=== PATIENT | female | born 1935 | race African-American/Black ===

== ENCOUNTER 2016-04-23 15:34 | Observation (INO) | payer MEDICARE, MEDICAID ==
[~2016-04-23] VITALS: Ht 149.9 cm; Wt 86.6 kg
[2016-04-23 15:40] VITALS: BP 176/75; PULSE 70; TEMP 98.5
[2016-04-23] MEDS ORDERED: HCTZ 25MG TAB25 MG PO (15:50)
[2016-04-23] MEDS ORDERED: PRAVACHOL80 MG PO (15:51)
[2016-04-23] MEDS ORDERED: COZAAR100 MG PO (15:51)
[2016-04-23] MEDS ORDERED: BONIVA150 MG PO (15:52)
[2016-04-23] MEDS ORDERED: ULTRAM 50MG TAB50 MG PO (15:56)
[2016-04-23] MEDS ORDERED: ASPIRIN 81M81 MG/TA2 PO (16:04)
[2016-04-23 18:37] LABS: BASO # 0.1 (0.0-0.2); BASO % 0.4 % (0.0-2.0); EOS # 0.3 (0.0-0.7); EOS % 2.6 % (0-4.0); GRAN # 6.9 (1.4-6.5); GRAN % 61.4 % (42.2-75.2); HEMATOCRIT 39.7 % (37.0-47.0); LYMPH # 3.4 (1.2-3.4); LYMPH % 29.6 % (20.0-51.0); MEAN CELL VOLUME 91 fl (80.0-100.0); MEAN CORPUSCULAR HEMOGLOBIN 30 pg (27.0-31.0); MEAN CORPUSCULAR HGB CONC 33 g/dl (33.0-37.0); MEAN PLATELET VOLUME 13.4 fl (7.4-10.4); MONO # 0.6 (0.1-0.6); MONO % 5.7 % (1.7-9.3); PLATELET COUNT 156 K/mm3 (130-400); RED BLOOD COUNT 4.37 M/mm3 (4.10-5.30); REDCELL DISTRIBUTION WIDTH-CV 13.1 % (11.5-14.5); WHITE BLOOD COUNT 11.3 K/mm3 (4.8-10.8)
[2016-04-23 18:40] LABS: INR 1.1 (0.8-3.0); PROTHROMBIN TIME 11.7 SECONDS (9.7-12.8)
[2016-04-23 18:43] LABS: PARTIAL THROMBOPLASTIN TIME 31.8 SECONDS (26.0-37.0)
[2016-04-23 18:47] LABS: ADJUSTED CALCIUM 9.7 mg/dL (8.4-10.2); ALANINE AMINOTRANSFERASE 19 U/L (9-52); ALBUMIN 3.9 gm/dL (3.5-5.0); ALKALINE PHOSPHATASE 74 U/L (50-136); ANION GAP 11 mmol/L (7-16); BILIRUBIN,TOTAL 0.9 mg/dL (0.0-1.0); BLOOD UREA NITROGEN 6 mg/dL (7-17); CALCIUM 9.6 mg/dL (8.4-10.2); CARBON DIOXIDE 31 mmol/L (22-30); CHLORIDE 101 mmol/L (98-107); CREATINE KINASE 117 U/L (30-135); CREATININE, serum 0.76 mg/dL (0.52-1.25); GLUCOSE 106 mg/dL (74-106); POTASSIUM 3.3 mmol/L (3.4-5.0); SODIUM 143 mmol/L (137-145); TOTAL PROTEIN 7.4 gm/dL (6.4-8.2)
[2016-04-23 18:58] LABS: B-TYPE NATRIURETIC PEPTIDE 886 pg/mL (0-450)
[2016-04-23 18:59] LABS: CHOLESTEROL 143 mg/dL (120-200); HDL CHOLESTEROL 50 mg/dL; LDL CHOLESTEROL 76 mg/dL; TRIGLYCERIDE 87 mg/dL
[2016-04-23 19:03] LABS: TROPONIN-I < 0.012 ng/mL (0.000-0.034)
[2016-04-23 19:30] VITALS: BP 189/66; PULSE 70; TEMP 98.5
[2016-04-23 21:46] VITALS: BP 153/67
[2016-04-23 23:45] VITALS: BP 157/56; PULSE 64; TEMP 98.7
[2016-04-24 04:07] VITALS: BP 106/53; PULSE 44; TEMP 98.4
[2016-04-24 06:13] VITALS: BP 106/53; PULSE 44
[2016-04-24 08:34] VITALS: BP 185/61; PULSE 65; TEMP 98.5
[2016-04-24 12:16] VITALS: BP 156/74; PULSE 65; TEMP 98.1
[2016-04-24 15:27] VITALS: BP 155/63; PULSE 70; TEMP 98.2
== END 2016-04-24 16:30 | disposition home or self-care (01) ==
LOC: MEDICAL 15:34
PROVIDERS: Internal Medicine Cardiovascular Disease
DX: R07.89 Other chest pain (principal); I10 Essential (primary) hypertension; E66.9 Obesity, unspecified; E87.6 Hypokalemia; I51.7 Cardiomegaly; I50.9 Heart failure, unspecified; E78.5 Hyperlipidemia, unspecified
CPT/HCPCS: 99222-AI; 99238; A9502; G0378; G0379; J2785; J7030

== ENCOUNTER 2016-05-26 19:21 | Inpatient (IN) | payer MEDICARE, MEDICAID ==
[2016-05-26] VITALS (35 sets, daily range): BP systolic 109; BP diastolic 75; PULSE 142; TEMP 98.4; O2SAT 91–99
[~2016-05-26] VITALS: Ht 147.3 cm; Wt 93.4 kg
[~2016-05-26 19:21] MED LIST: ASPIRIN 81M81 MG/TA2 PO; BONIVA150 MG PO; COZAAR100 MG PO; HCTZ 25MG TAB25 MG PO; PRAVACHOL80 MG PO; ULTRAM 50MG TAB50 MG PO
[2016-05-26 19:58] LABS: HEMATOCRIT 40.8 % (37.0-47.0); HEMOGLOBIN 13.5 g/dl (12.5-16.0); MEAN CELL VOLUME 90 fl (80.0-100.0); MEAN CORPUSCULAR HEMOGLOBIN 30 pg (27.0-31.0); MEAN CORPUSCULAR HGB CONC 33 g/dl (33.0-37.0); MEAN PLATELET VOLUME 13.4 fl (7.4-10.4); PLATELET COUNT 160 K/mm3 (130-400); RED BLOOD COUNT 4.52 M/mm3 (4.10-5.30); REDCELL DISTRIBUTION WIDTH-CV 13.2 % (11.5-14.5); WHITE BLOOD COUNT 17.7 K/mm3 (4.8-10.8)
[2016-05-26 20:02] LABS: ADD PATHOLOGY DIFF REVIEW NO
[2016-05-26 20:09] LABS: ADJUSTED CALCIUM 9.4 mg/dL (8.4-10.2); BILIRUBIN,TOTAL 1.1 mg/dL (0.0-1.0); CALCIUM 9.4 mg/dL (8.4-10.2); CREATININE, serum 1.04 mg/dL (0.52-1.25); POTASSIUM 3.1 mmol/L (3.4-5.0); TOTAL PROTEIN 7.3 gm/dL (6.4-8.2)
[2016-05-26 20:20] LABS: TROPONIN-I 0.013 ng/mL (0.000-0.034)
[2016-05-26 20:36] LABS: BAND 25 % (0-10); NEUTROPHILS 47 % (42.0-75.2); TOTAL CELLS COUNTED 100
[2016-05-27] VITALS (586 sets, daily range): BP systolic 90–131; BP diastolic 44–73; PULSE 53–137; TEMP 97.4–98.4; O2SAT 66–100
[2016-05-27] MEDS ORDERED: HYZAAR 25 MG-101 TAB PO (00:11)
[2016-05-27 02:11] LABS: PH 5 (5-8); URINE APPEARANCE Hazy; URINE BACTERIA None Seen /hpf; URINE BILIRUBIN Negative (NEGATIVE); URINE BLOOD Negative (NEGATIVE); URINE COLOR Yellow; URINE GLUCOSE Negative (NEGATIVE); URINE KETONE Negative (NEGATIVE); URINE RBC 0-2 /hpf; URINE UROBILINOGEN Negative (NEGATIVE)
[2016-05-27 06:33] LABS: INR 1.1 (0.8-3.0); PROTHROMBIN TIME 11.9 SECONDS (9.7-12.8)
[2016-05-27 06:41] LABS: CREATININE, serum 0.9 mg/dL (0.52-1.25); POTASSIUM 3.1 mmol/L (3.4-5.0)
[2016-05-27 19:43] LABS: BASO # 0.1 (0.0-0.2); BASO % 0.3 % (0.0-2.0); EOS # 0.1 (0.0-0.7); EOS % 0.4 % (0-4.0); GRAN # 14.9 (1.4-6.5); GRAN % 80.8 % (42.2-75.2); HEMATOCRIT 39.1 % (37.0-47.0); HEMOGLOBIN 12.3 g/dl (12.5-16.0); LYMPH # 2.3 (1.2-3.4); LYMPH % 12.5 % (20.0-51.0); MEAN CELL VOLUME 94 fl (80.0-100.0); MEAN CORPUSCULAR HEMOGLOBIN 29 pg (27.0-31.0); MEAN CORPUSCULAR HGB CONC 32 g/dl (33.0-37.0); MONO % 5.5 % (1.7-9.3); PLATELET COUNT 135 K/mm3 (130-400); RED BLOOD COUNT 4.18 M/mm3 (4.10-5.30); REDCELL DISTRIBUTION WIDTH-CV 13.5 % (11.5-14.5); WHITE BLOOD COUNT 18.4 K/mm3 (4.8-10.8)
[2016-05-28 03:34] VITALS: BP 148/64; PULSE 75; TEMP 97.7
[2016-05-28 05:50] VITALS: BP 150/80; PULSE 149
[2016-05-28 07:39] VITALS: BP 141/78; PULSE 71; TEMP 97.9
[2016-05-28 12:27] VITALS: BP 126/74; PULSE 131; TEMP 98.1
[2016-05-28 18:42] VITALS: BP 123/85; PULSE 88; TEMP 98.8
[2016-05-28 20:07] VITALS: BP 141/70; PULSE 130; TEMP 98.2
[2016-05-29] VITALS (391 sets, daily range): BP systolic 94–138; BP diastolic 50–77; PULSE 55–125; TEMP 97.4–98; O2SAT 41–100
[2016-05-29 12:22] LABS: ADJUSTED CALCIUM 8.2 mg/dL (8.4-10.2); ALBUMIN 2.6 gm/dL (3.5-5.0); BILIRUBIN,TOTAL 0.8 mg/dL (0.0-1.0); CALCIUM 7.1 mg/dL (8.4-10.2); CREATININE, serum 0.75 mg/dL (0.52-1.25); POTASSIUM 4.1 mmol/L (3.4-5.0); TOTAL PROTEIN 5.8 gm/dL (6.4-8.2)
[2016-05-29 12:34] LABS: BASO % 0.3 % (0.0-2.0); EOS # 0.3 (0.0-0.7); EOS % 2.4 % (0-4.0); GRAN # 8.9 (1.4-6.5); GRAN % 77.6 % (42.2-75.2); HEMATOCRIT 32.8 % (37.0-47.0); HEMOGLOBIN 10.5 g/dl (12.5-16.0); LYMPH # 1.6 (1.2-3.4); LYMPH % 14.2 % (20.0-51.0); MEAN CELL VOLUME 94 fl (80.0-100.0); MEAN CORPUSCULAR HEMOGLOBIN 30 pg (27.0-31.0); MEAN CORPUSCULAR HGB CONC 32 g/dl (33.0-37.0); MEAN PLATELET VOLUME 14.4 fl (7.4-10.4); MONO # 0.6 (0.1-0.6); MONO % 5.2 % (1.7-9.3); PLATELET COUNT 135 K/mm3 (130-400); REDCELL DISTRIBUTION WIDTH-CV 13.6 % (11.5-14.5); WHITE BLOOD COUNT 11.5 K/mm3 (4.8-10.8)
[2016-05-29 16:16] LABS: ARTERIAL BLD GAS O2 SATURATION 99.1 % (92-100); ARTERIAL BLOOD GAS BASE EXCESS -8.2 (-2-2); ARTERIAL BLOOD GAS HCO3 17.8 meq/L (22-26); ARTERIAL BLOOD GAS pH 7.29 (7.35-7.45); ATS? YES; OXYHEMOGLOBIN 98.5 %
[2016-05-29 16:53] LABS: HEMATOCRIT 35.8 % (37.0-47.0); MEAN CELL VOLUME 97 fl (80.0-100.0); MEAN CORPUSCULAR HEMOGLOBIN 30 pg (27.0-31.0); MEAN CORPUSCULAR HGB CONC 31 g/dl (33.0-37.0); MEAN PLATELET VOLUME 13.8 fl (7.4-10.4); PLATELET COUNT 167 K/mm3 (130-400); RED BLOOD COUNT 3.69 M/mm3 (4.10-5.30); REDCELL DISTRIBUTION WIDTH-CV 13.5 % (11.5-14.5); WHITE BLOOD COUNT 16.1 K/mm3 (4.8-10.8)
[2016-05-29 17:08] LABS: CALCIUM 6.8 mg/dL (8.4-10.2); CREATININE, serum 0.93 mg/dL (0.52-1.25); POTASSIUM 4.2 mmol/L (3.4-5.0)
[2016-05-29 17:41] LABS: TROPONIN-I 0.072 ng/mL (0.000-0.034)
[2016-05-30] VITALS (1220 sets, daily range): BP systolic 108–195; BP diastolic 59–95; PULSE 60–76; TEMP 97.9–98.8; O2SAT 41–100
[2016-05-30 03:48] LABS: CALCIUM 7.3 mg/dL (8.4-10.2); CREATININE, serum 0.93 mg/dL (0.52-1.25); MAGNESIUM 2.1 mg/dL (1.6-2.3); POTASSIUM 4.5 mmol/L (3.4-5.0)
[2016-05-31] VITALS (885 sets, daily range): BP systolic 100–176; BP diastolic 48–77; PULSE 53–68; TEMP 98.1–98.9; O2SAT 69–100
[2016-05-31 07:48] LABS: CALCIUM 8.4 mg/dL (8.4-10.2); CREATININE, serum 0.77 mg/dL (0.52-1.25); MAGNESIUM 2.3 mg/dL (1.6-2.3); POTASSIUM 4.2 mmol/L (3.4-5.0)
[2016-06-01] VITALS (1035 sets, daily range): BP systolic 113–155; BP diastolic 56–82; PULSE 55–79; TEMP 98.1–98.7; O2SAT 87–100
[2016-06-01 06:28] LABS: CALCIUM 8.5 mg/dL (8.4-10.2); CREATININE, serum 0.87 mg/dL (0.52-1.25); MAGNESIUM 1.9 mg/dL (1.6-2.3)
[2016-06-01 11:33] LABS: FASTING URINE GLUCOSE NEGATIVE
[2016-06-01 12:37] LABS: 2 HR URINE GLUCOSE NEGATIVE
[2016-06-02 05:14] VITALS: BP 142/53; PULSE 77; TEMP 98.4
[2016-06-02 09:07] LABS: CALCIUM 8.7 mg/dL (8.4-10.2); CREATININE, serum 0.99 mg/dL (0.52-1.25); MAGNESIUM 1.9 mg/dL (1.6-2.3)
[2016-06-02 09:21] LABS: POTASSIUM 3.8 mmol/L (3.4-5.0)
[2016-06-02 10:40] VITALS: BP 142/65; PULSE 60; TEMP 98.3
[2016-06-02 12:47] LABS: BASO # 0.1 (0.0-0.2); BASO % 0.3 % (0.0-2.0); EOS # 0.8 (0.0-0.7); EOS % 5.3 % (0-4.0); GRAN # 10.6 (1.4-6.5); GRAN % 69.2 % (42.2-75.2); LYMPH # 2.6 (1.2-3.4); LYMPH % 16.7 % (20.0-51.0); MEAN CELL VOLUME 92 fl (80.0-100.0); MEAN CORPUSCULAR HGB CONC 32 g/dl (33.0-37.0); MEAN PLATELET VOLUME 12.4 fl (7.4-10.4); MONO # 1.2 (0.1-0.6); MONO % 7.8 % (1.7-9.3); PLATELET COUNT 226 K/mm3 (130-400); RED BLOOD COUNT 3.61 M/mm3 (4.10-5.30); REDCELL DISTRIBUTION WIDTH-CV 13.9 % (11.5-14.5); WHITE BLOOD COUNT 15.3 K/mm3 (4.8-10.8)
[2016-06-02 12:48] LABS: HEMATOCRIT 33.2 % (37.0-47.0); HEMOGLOBIN 10.7 g/dl (12.5-16.0); MEAN CORPUSCULAR HEMOGLOBIN 30 pg (27.0-31.0)
[2016-06-02 13:53] VITALS: BP 161/75; PULSE 63; TEMP 98.3
[2016-06-02 16:39] VITALS: BP 181/74; PULSE 65; TEMP 99.2
[2016-06-02 17:11] VITALS: BP 168/75
[2016-06-02 22:02] VITALS: BP 153/67; PULSE 61; TEMP 98.2
[2016-06-03 04:48] VITALS: BP 146/66; PULSE 59; TEMP 98.4
[2016-06-03 07:45] LABS: CALCIUM 9.3 mg/dL (8.4-10.2); CREATININE, serum 0.95 mg/dL (0.52-1.25); MAGNESIUM 1.9 mg/dL (1.6-2.3); POTASSIUM 4.5 mmol/L (3.4-5.0)
[2016-06-03 08:21] LABS: ALBUMIN 3.5 gm/dL (3.5-5.0); BILIRUBIN,TOTAL 1.2 mg/dL (0.0-1.0); TOTAL PROTEIN 6.8 gm/dL (6.4-8.2)
[2016-06-03 08:30] LABS: BILIRUBIN,DIRECT 0.9 mg/dL (0.0-0.4)
[2016-06-03 09:18] VITALS: BP 159/67; PULSE 66; TEMP 98.2
[2016-06-03 13:15] VITALS: BP 173/81; PULSE 59; TEMP 97.8
[2016-06-03 17:33] VITALS: BP 162/83; PULSE 61; TEMP 98.2
[2016-06-03 21:52] VITALS: BP 169/79; PULSE 59; TEMP 97.5
[2016-06-04 02:55] VITALS: BP 148/69; PULSE 59; TEMP 97.4
[2016-06-04 05:07] VITALS: BP 134/60; PULSE 51; TEMP 97.5
[2016-06-04 09:30] VITALS: BP 154/58; PULSE 50; TEMP 98.3
[2016-06-04 13:40] LABS: PH 7 (5-8); SQUAMOUS EPITHELIAL 0-2 /hpf; URINE APPEARANCE Clear; URINE BACTERIA None Seen /hpf; URINE BILIRUBIN Negative (NEGATIVE); URINE BLOOD 1+ (NEGATIVE); URINE COLOR Yellow; URINE GLUCOSE Negative (NEGATIVE); URINE KETONE Negative (NEGATIVE); URINE UROBILINOGEN Negative (NEGATIVE); URINE WBC 0-2 /hpf
[2016-06-04 13:43] VITALS: BP 160/65; PULSE 52; TEMP 98.2
[2016-06-04 17:51] VITALS: BP 192/63; PULSE 57; TEMP 98.1
[2016-06-04 21:50] VITALS: BP 166/62; PULSE 59; TEMP 98.1
[2016-06-05 00:30] VITALS: BP 141/60; PULSE 54; TEMP 98
[2016-06-05 04:58] VITALS: BP 147/61; PULSE 58; TEMP 97.4
[2016-06-05 07:48] LABS: ADJUSTED CALCIUM 10.4 mg/dL (8.4-10.2); ALBUMIN 2.8 gm/dL (3.5-5.0); BILIRUBIN,TOTAL 0.7 mg/dL (0.0-1.0); CALCIUM 9.4 mg/dL (8.4-10.2); CREATININE, serum 0.95 mg/dL (0.52-1.25); POTASSIUM 4.2 mmol/L (3.4-5.0); TOTAL PROTEIN 5.8 gm/dL (6.4-8.2)
[2016-06-05] MEDS ORDERED: QUESTRAN LI4 GM/5 GM PO (09:51)
[2016-06-05] MEDS ORDERED: TAMBOCOR 1100 MG/TAB PO (09:52)
[2016-06-05] MEDS ORDERED: HCTZ 25MG TAB25 MG PO (09:55)
[2016-06-05] MEDS ORDERED: PROBIOTIC ACID1 EAC3 PO (09:56)
[2016-06-05 10:21] VITALS: BP 163/74; PULSE 51; TEMP 98.2
[2016-06-05] MEDS ORDERED: ZESTRIL 20MG TA20 MG PO (11:53)
[2016-06-05] MEDS ORDERED: KLOR-CON 1010 MEQ PO (11:54)
[2016-06-05] MEDS ORDERED: LOPRESSOR 225 MG/TAB PO (11:56)
[2016-06-05 14:25] VITALS: BP 123/44; PULSE 59; TEMP 98.4
== END 2016-06-05 17:05 | disposition home or self-care (01) | DRG 417 ==
LOC: COL.ER 19:21 → ICU 21:20 → MEDICAL 21:20 → ICU 22:11 → MEDICAL 05-27 17:09 → IMCU 05-29 16:35 → SURG 06-01 19:58
PROVIDERS: Emergency Medicine; Family Medicine; Internal Medicine; Internal Medicine Cardiovascular Disease; Nurse Practitioner Family; Surgery
PROC: BF0C1ZZ Plain Radiography of Hepatobiliary System, All using Low Osmolar Contrast (ICD-10-PCS; 2016-05-27)
PROC: 0FB14ZX Excision of Right Lobe Liver, Percutaneous Endoscopic Approach, Diagnostic (ICD-10-PCS; 2016-05-27)
PROC: 0F9440Z Drainage of Gallbladder with Drainage Device, Percutaneous Endoscopic Approach (ICD-10-PCS; 2016-05-27)
PROC: 0FT44ZZ Resection of Gallbladder, Percutaneous Endoscopic Approach (ICD-10-PCS; principal; 2016-05-27 12:30)
PROC: 0JH602Z Insertion of Monitoring Device into Chest Subcutaneous Tissue and Fascia, Open Approach (ICD-10-PCS; 2016-05-29)
PROC: 5A2204Z Restoration of Cardiac Rhythm, Single (ICD-10-PCS; 2016-05-29)
DX: K80.12 Calculus of gallbladder with acute and chronic cholecystitis without obstruction (principal); J96.01 Acute respiratory failure with hypoxia; I50.33 Acute on chronic diastolic (congestive) heart failure; I47.1 Supraventricular tachycardia; K90.9 Intestinal malabsorption, unspecified; D13.4 Benign neoplasm of liver; I49.5 Sick sinus syndrome; E87.6 Hypokalemia; E74.39 Other disorders of intestinal carbohydrate absorption; I44.1 Atrioventricular block, second degree; E87.70 Fluid overload, unspecified; I11.0 Hypertensive heart disease with heart failure
CPT/HCPCS: 99223-AI; 99232-AI; 99233-AI; 99239; A4315; A9284; J0153; J0360; J1170; J1650; J1940; J2405; J2543; J2550; J2704; J3010; J3480; J7030; J7050; Q9967

== ENCOUNTER 2016-06-10 18:40 | Observation (INO) | payer MEDICARE, MEDICAID ==
[~2016-06-10] VITALS: Ht 147.3 cm; Wt 87.9 kg
[~2016-06-10 18:40] MED LIST changes: +HYZAAR 25 MG-101 TAB PO; +KLOR-CON 1010 MEQ PO; +LOPRESSOR 225 MG/TAB PO; +PROBIOTIC ACID1 EAC3 PO; +QUESTRAN LI4 GM/5 GM PO; +TAMBOCOR 1100 MG/TAB PO; +ZESTRIL 20MG TA20 MG PO
[2016-06-10 19:37] LABS: BASO # 0.1 (0.0-0.2); BASO % 0.3 % (0.0-2.0); EOS # 0.6 (0.0-0.7); EOS % 3.7 % (0-4.0); GRAN # 12.2 (1.4-6.5); GRAN % 72.1 % (42.2-75.2); HEMATOCRIT 37.3 % (37.0-47.0); LYMPH # 2.6 (1.2-3.4); LYMPH % 15.4 % (20.0-51.0); MEAN CELL VOLUME 92 fl (80.0-100.0); MEAN CORPUSCULAR HEMOGLOBIN 30 pg (27.0-31.0); MEAN CORPUSCULAR HGB CONC 32 g/dl (33.0-37.0); MEAN PLATELET VOLUME 12.4 fl (7.4-10.4); MONO # 1.4 (0.1-0.6); PLATELET COUNT 274 K/mm3 (130-400); RED BLOOD COUNT 4.05 M/mm3 (4.10-5.30); REDCELL DISTRIBUTION WIDTH-CV 14.6 % (11.5-14.5); WHITE BLOOD COUNT 16.9 K/mm3 (4.8-10.8)
[2016-06-10 19:52] LABS: ADJUSTED CALCIUM 9.5 mg/dL (8.4-10.2); ALANINE AMINOTRANSFERASE 70 U/L (9-52); ALBUMIN 3.7 gm/dL (3.5-5.0); ALKALINE PHOSPHATASE 145 U/L (50-136); ANION GAP 15 mmol/L (7-16); BILIRUBIN,TOTAL 1.1 mg/dL (0.0-1.0); BLOOD UREA NITROGEN 6 mg/dL (7-17); CALCIUM 9.3 mg/dL (8.4-10.2); CARBON DIOXIDE 27 mmol/L (22-30); CHLORIDE 98 mmol/L (98-107); CREATININE, serum 0.77 mg/dL (0.52-1.25); GLUCOSE 102 mg/dL (74-106); LIPASE 143 U/L (23-300); SODIUM 141 mmol/L (137-145); TOTAL PROTEIN 7.3 gm/dL (6.4-8.2)
[2016-06-10 20:01] LABS: TROPONIN-I < 0.012 ng/mL (0.000-0.034)
[2016-06-10 20:03] LABS: PH 6 (5-8); SQUAMOUS EPITHELIAL None Seen /hpf; URINE APPEARANCE Clear; URINE BACTERIA None Seen /hpf; URINE BILIRUBIN Negative (NEGATIVE); URINE BLOOD 1+ (NEGATIVE); URINE COLOR Straw; URINE GLUCOSE Negative (NEGATIVE); URINE KETONE Trace (NEGATIVE); URINE RBC 0-2 /hpf; URINE UROBILINOGEN Negative (NEGATIVE); URINE WBC 0-2 /hpf
[2016-06-10 20:17] LABS: C-REACTIVE PROTEIN 17.2 mg/dL (0.0-0.9)
[2016-06-10 21:48] LABS: B-TYPE NATRIURETIC PEPTIDE 2490 pg/mL (0-450)
[2016-06-10 22:19] VITALS: BP 154/68; PULSE 91; TEMP 97.9
[2016-06-11 04:24] VITALS: BP 127/47; PULSE 67; TEMP 97.2
[2016-06-11 07:41] LABS: BASO # 0.1 (0.0-0.2); BASO % 0.4 % (0.0-2.0); EOS # 0.7 (0.0-0.7); EOS % 5.7 % (0-4.0); GRAN # 8.4 (1.4-6.5); GRAN % 67.3 % (42.2-75.2); LYMPH # 2.4 (1.2-3.4); LYMPH % 18.8 % (20.0-51.0); MEAN CELL VOLUME 94 fl (80.0-100.0); MEAN CORPUSCULAR HGB CONC 31 g/dl (33.0-37.0); MEAN PLATELET VOLUME 12.8 fl (7.4-10.4); MONO # 0.9 (0.1-0.6); MONO % 7.4 % (1.7-9.3); PLATELET COUNT 242 K/mm3 (130-400); RED BLOOD COUNT 3.49 M/mm3 (4.10-5.30); REDCELL DISTRIBUTION WIDTH-CV 14.9 % (11.5-14.5); WHITE BLOOD COUNT 12.5 K/mm3 (4.8-10.8)
[2016-06-11 07:49] LABS: HEMATOCRIT 32.9 % (37.0-47.0); HEMOGLOBIN 10.3 g/dl (12.5-16.0); MEAN CORPUSCULAR HEMOGLOBIN 30 pg (27.0-31.0)
[2016-06-11 09:02] LABS: ADJUSTED CALCIUM 9.3 mg/dL (8.4-10.2); ALBUMIN 2.8 gm/dL (3.5-5.0); BILIRUBIN,TOTAL 0.9 mg/dL (0.0-1.0); CALCIUM 8.3 mg/dL (8.4-10.2); CREATININE, serum 0.76 mg/dL (0.52-1.25); POTASSIUM 3.6 mmol/L (3.4-5.0); TOTAL PROTEIN 5.8 gm/dL (6.4-8.2)
[2016-06-11 11:24] VITALS: BP 114/50; PULSE 59; TEMP 97.4
[2016-06-11 14:00] VITALS: BP 123/43; PULSE 64; TEMP 97
[2016-06-11 17:40] VITALS: BP 171/56; PULSE 70; TEMP 97.6
[2016-06-11 19:04] VITALS: BP 152/60
[2016-06-11 21:44] VITALS: BP 147/56; PULSE 70; TEMP 97.8
[2016-06-12 01:21] VITALS: BP 125/50; PULSE 68; TEMP 98.2
[2016-06-12 05:00] VITALS: BP 111/41; PULSE 66; TEMP 97.1
[2016-06-12 06:53] LABS: BASO % 0.4 % (0.0-2.0); EOS # 0.7 (0.0-0.7); EOS % 6.6 % (0-4.0); GRAN # 7.1 (1.4-6.5); GRAN % 69.3 % (42.2-75.2); LYMPH # 1.7 (1.2-3.4); LYMPH % 16.8 % (20.0-51.0); MEAN CELL VOLUME 95 fl (80.0-100.0); MEAN CORPUSCULAR HGB CONC 32 g/dl (33.0-37.0); MEAN PLATELET VOLUME 12.8 fl (7.4-10.4); MONO # 0.7 (0.1-0.6); MONO % 6.5 % (1.7-9.3); PLATELET COUNT 257 K/mm3 (130-400); RED BLOOD COUNT 3.39 M/mm3 (4.10-5.30); REDCELL DISTRIBUTION WIDTH-CV 14.6 % (11.5-14.5); WHITE BLOOD COUNT 10.3 K/mm3 (4.8-10.8)
[2016-06-12 07:02] LABS: HEMATOCRIT 32.1 % (37.0-47.0); HEMOGLOBIN 10.1 g/dl (12.5-16.0); MEAN CORPUSCULAR HEMOGLOBIN 30 pg (27.0-31.0)
[2016-06-12 09:49] VITALS: BP 124/52; PULSE 62; TEMP 98.1
[2016-06-12 14:25] VITALS: BP 134/52; PULSE 63; TEMP 98
== END 2016-06-12 17:56 | disposition home or self-care (01) ==
LOC: COL.ER 18:40 → SURG 21:33
PROVIDERS: Emergency Medicine; Family Medicine; Nurse Practitioner Family
DX: R10.12 Left upper quadrant pain (principal); M54.9 Dorsalgia, unspecified; I47.1 Supraventricular tachycardia; I10 Essential (primary) hypertension; E78.5 Hyperlipidemia, unspecified; Z95.818 Presence of other cardiac implants and grafts
CPT/HCPCS: G0378; G8978-GP; G8979-GP; J2270; J2405; J2543; J7030; J7050; Q9967

== ENCOUNTER 2016-07-30 21:14 | Inpatient (IN) | payer MEDICARE, MEDICAID ==
[~2016-07-30] VITALS: Ht 147.3 cm; Wt 78.0 kg
[2016-07-30 21:43] LABS: BASO # 0.1 (0.0-0.2); BASO % 0.6 % (0.0-2.0); EOS # 0.3 (0.0-0.7); EOS % 2.7 % (0-4.0); GRAN # 5.9 (1.4-6.5); GRAN % 48.5 % (42.2-75.2); HEMATOCRIT 41.2 % (37.0-47.0); HEMOGLOBIN 13.7 g/dl (12.5-16.0); LYMPH # 4.8 (1.2-3.4); LYMPH % 39.1 % (20.0-51.0); MEAN CELL VOLUME 88 fl (80.0-100.0); MEAN CORPUSCULAR HEMOGLOBIN 29 pg (27.0-31.0); MEAN CORPUSCULAR HGB CONC 33 g/dl (33.0-37.0); MEAN PLATELET VOLUME 12.7 fl (7.4-10.4); MONO # 1.1 (0.1-0.6); MONO % 8.9 % (1.7-9.3); PLATELET COUNT 205 K/mm3 (130-400); REDCELL DISTRIBUTION WIDTH-CV 14.9 % (11.5-14.5); WHITE BLOOD COUNT 12.2 K/mm3 (4.8-10.8)
[2016-07-30 21:53] LABS: INR 1.1 (0.8-3.0)
[2016-07-30 21:55] LABS: ALBUMIN 3.9 gm/dL (3.5-5.0); CALCIUM 9.9 mg/dL (8.4-10.2); CREATININE, serum 1.81 mg/dL (0.52-1.25); TOTAL PROTEIN 7.4 gm/dL (6.4-8.2)
[2016-07-30 21:57] LABS: POTASSIUM 2.6 mmol/L (3.4-5.0)
[2016-07-30 22:05] LABS: TROPONIN-I 0.028 ng/mL (0.000-0.034)
[2016-07-31] VITALS (18 sets, daily range): BP systolic 93–147; BP diastolic 42–91; PULSE 59–120; TEMP 97.8–98.5
[2016-07-31] MEDS ORDERED: PROBIOTIC ACID1 EAC3 PO (01:14)
[2016-07-31 01:17] LABS: MAGNESIUM 2.2 mg/dL (1.6-2.3); POTASSIUM 3.1 mmol/L (3.4-5.0)
[2016-07-31 07:04] LABS: BASO % 0.4 % (0.0-2.0); EOS # 0.2 (0.0-0.7); EOS % 2.7 % (0-4.0); GRAN % 45.2 % (42.2-75.2); HEMATOCRIT 37.4 % (37.0-47.0); LYMPH # 3.9 (1.2-3.4); LYMPH % 44.1 % (20.0-51.0); MEAN CELL VOLUME 90 fl (80.0-100.0); MEAN CORPUSCULAR HEMOGLOBIN 29 pg (27.0-31.0); MEAN CORPUSCULAR HGB CONC 32 g/dl (33.0-37.0); MEAN PLATELET VOLUME 13.5 fl (7.4-10.4); MONO # 0.7 (0.1-0.6); MONO % 7.4 % (1.7-9.3); PLATELET COUNT 177 K/mm3 (130-400); RED BLOOD COUNT 4.16 M/mm3 (4.10-5.30); WHITE BLOOD COUNT 8.9 K/mm3 (4.8-10.8)
[2016-07-31 07:05] LABS: HEMOGLOBIN 11.9 g/dl (12.5-16.0)
[2016-07-31 07:16] LABS: ADJUSTED CALCIUM 9.5 mg/dL (8.4-10.2); BILIRUBIN,TOTAL 0.7 mg/dL (0.0-1.0); CALCIUM 8.7 mg/dL (8.4-10.2); CREATININE, serum 1.78 mg/dL (0.52-1.25); POTASSIUM 3.1 mmol/L (3.4-5.0); TOTAL PROTEIN 6.1 gm/dL (6.4-8.2)
[2016-07-31 07:20] LABS: HYALINE CAST >12 /lpf; PH 5 (5-8); URINE APPEARANCE Hazy; URINE BACTERIA Rare /hpf; URINE BILIRUBIN Negative (NEGATIVE); URINE BLOOD Negative (NEGATIVE); URINE COLOR Yellow; URINE GLUCOSE Negative (NEGATIVE); URINE KETONE Negative (NEGATIVE); URINE RBC 0-2 /hpf; URINE UROBILINOGEN Negative (NEGATIVE)
[2016-08-01] VITALS (8 sets, daily range): BP systolic 134–158; BP diastolic 52–92; PULSE 61–69; TEMP 97.4–98.5
[2016-08-01 07:53] LABS: CALCIUM 8.6 mg/dL (8.4-10.2); CREATININE, serum 1.13 mg/dL (0.52-1.25)
[2016-08-02 00:05] VITALS: BP 142/61; PULSE 65; TEMP 97.6
[2016-08-02 04:18] VITALS: BP 146/59; PULSE 62; TEMP 97.7
[2016-08-02 07:48] VITALS: BP 158/58; PULSE 69
[2016-08-02 08:22] LABS: HEMATOCRIT 37.3 % (37.0-47.0); MEAN CELL VOLUME 93 fl (80.0-100.0); MEAN CORPUSCULAR HEMOGLOBIN 29 pg (27.0-31.0); MEAN CORPUSCULAR HGB CONC 31 g/dl (33.0-37.0); MEAN PLATELET VOLUME 14.7 fl (7.4-10.4); PLATELET COUNT 125 K/mm3 (130-400); RED BLOOD COUNT 4.03 M/mm3 (4.10-5.30); REDCELL DISTRIBUTION WIDTH-CV 15.6 % (11.5-14.5); WHITE BLOOD COUNT 7.1 K/mm3 (4.8-10.8)
[2016-08-02 08:27] LABS: HEMOGLOBIN 11.7 g/dl (12.5-16.0)
[2016-08-02 08:35] LABS: CREATININE, serum 0.88 mg/dL (0.52-1.25); POTASSIUM 4.3 mmol/L (3.4-5.0)
[2016-08-02 11:19] VITALS: BP 190/70; PULSE 64; TEMP 97.5
[2016-08-02] MEDS ORDERED: CEPHALEXIN500 M1 PO (11:25)
[2016-08-02] MEDS ORDERED: TOPROL XL 50MG50 MG PO (11:26)
[2016-08-02] MEDS ORDERED: TYLENOL 325MG325 MG PO (11:26)
== END 2016-08-02 16:15 | disposition home or self-care (01) | DRG 243 ==
LOC: COL.ER 21:14 → MEDICAL 07-31 00:47
PROVIDERS: Emergency Medicine; Internal Medicine; Internal Medicine Cardiovascular Disease; Nurse Practitioner Family
PROC: 0JH606Z Insertion of Pacemaker, Dual Chamber into Chest Subcutaneous Tissue and Fascia, Open Approach (ICD-10-PCS; principal; 2016-07-31)
PROC: 02HK3JZ Insertion of Pacemaker Lead into Right Ventricle, Percutaneous Approach (ICD-10-PCS; 2016-07-31)
PROC: 02H63JZ Insertion of Pacemaker Lead into Right Atrium, Percutaneous Approach (ICD-10-PCS; 2016-07-31)
PROC: B2111ZZ Fluoroscopy of Multiple Coronary Arteries using Low Osmolar Contrast (ICD-10-PCS; 2016-07-31)
PROC: 0JPT02Z Removal of Monitoring Device from Trunk Subcutaneous Tissue and Fascia, Open Approach (ICD-10-PCS; 2016-07-31)
DX: I44.1 Atrioventricular block, second degree (principal); I20.0 Unstable angina; N17.9 Acute kidney failure, unspecified; I49.5 Sick sinus syndrome; I10 Essential (primary) hypertension; E87.6 Hypokalemia
CPT/HCPCS: 99223-AI; 99232-AI; 99239; A9270-GY; C1760; C1785; C1894; C1898; J0153; J0690; J1160; J1644; J2250; J2765; J3010; J3475; J7030

== ENCOUNTER 2016-10-27 07:45 | Inpatient (IN) | payer MEDICARE, MEDICAID ==
[~2016-10-27] VITALS: Ht 147.3 cm; Wt 70.3 kg
[~2016-10-27 07:45] MED LIST changes: +CEPHALEXIN500 M1 PO; +TOPROL XL 50MG50 MG PO; +TYLENOL 325MG325 MG PO
[2016-10-27 07:57] VITALS: BP 188/110; PULSE 77; TEMP 97.7
[2016-10-27] MEDS ORDERED: NATURAL POTASS595 MG PO (08:11)
[2016-10-27 10:16] LABS: HEMATOCRIT 41.3 % (37.0-47.0); HEMOGLOBIN 13.3 g/dl (12.5-16.0); MEAN CELL VOLUME 92 fl (80.0-100.0); MEAN CORPUSCULAR HEMOGLOBIN 30 pg (27.0-31.0); MEAN CORPUSCULAR HGB CONC 32 g/dl (33.0-37.0); MEAN PLATELET VOLUME 14.3 fl (7.4-10.4); PLATELET COUNT 126 K/mm3 (130-400); RED BLOOD COUNT 4.49 M/mm3 (4.10-5.30); REDCELL DISTRIBUTION WIDTH-CV 14.6 % (11.5-14.5)
[2016-10-27 10:19] LABS: PROTHROMBIN TIME 11.1 SECONDS (9.7-12.8)
[2016-10-27 11:49] LABS: ADJUSTED CALCIUM 9.7 mg/dL (8.4-10.2); ALBUMIN 3.9 gm/dL (3.5-5.0); BILIRUBIN,TOTAL 0.9 mg/dL (0.0-1.0); CALCIUM 9.6 mg/dL (8.4-10.2); CREATININE, serum 0.85 mg/dL (0.52-1.25); POTASSIUM 3.6 mmol/L (3.4-5.0); TOTAL PROTEIN 7.2 gm/dL (6.4-8.2)
[2016-10-27 11:53] VITALS: BP 218/105; PULSE 111; TEMP 98
[2016-10-27 14:16] VITALS: BP 175/76
[2016-10-27 15:48] VITALS: BP 169/73; PULSE 59; TEMP 98.1
[2016-10-27 19:51] VITALS: BP 182/81; PULSE 66; TEMP 97.9
[2016-10-27 23:55] VITALS: BP 138/62; PULSE 59; TEMP 97.9
[2016-10-28 04:09] VITALS: BP 134/60; PULSE 63; TEMP 98.2
[2016-10-28 07:49] VITALS: BP 157/70; PULSE 61; TEMP 98
[2016-10-28 09:52] LABS: CALCIUM 9.5 mg/dL (8.4-10.2); CREATININE, serum 0.85 mg/dL (0.52-1.25); POTASSIUM 3.5 mmol/L (3.4-5.0)
[2016-10-28 11:57] VITALS: BP 162/71; PULSE 61; TEMP 98
[2016-10-28 16:49] VITALS: BP 158/67; PULSE 63; TEMP 97
[2016-10-28 20:08] VITALS: BP 147/69; PULSE 69; TEMP 98.7
[2016-10-29 00:01] VITALS: BP 139/69; PULSE 69; TEMP 98.1
[2016-10-29 03:43] VITALS: BP 166/73; PULSE 60; TEMP 97.7
[2016-10-29 08:24] VITALS: BP 141/71; PULSE 61; TEMP 97.7
[2016-10-29] MEDS ORDERED: BETAPACE 80MG80 MG PO (10:54)
[2016-10-29] MEDS ORDERED: COZAAR100 MG PO (10:55)
[2016-10-29] MEDS ORDERED: NORVASC 10MG10 MG PO (10:55)
[2016-10-29] MEDS ORDERED: CATAPRES 0.1MG0.1 MG PO (10:56)
[2016-10-29] MEDS ORDERED: FLOVENT 220MCG7.9 GM IH (10:57)
== END 2016-10-29 11:10 | disposition home or self-care (01) | DRG 310 ==
LOC: MEDICAL 07:45
PROVIDERS: Internal Medicine Cardiovascular Disease; Nurse Practitioner
DX: I47.1 Supraventricular tachycardia (principal); I10 Essential (primary) hypertension; E78.5 Hyperlipidemia, unspecified; Z95.0 Presence of cardiac pacemaker; Z86.73 Personal history of transient ischemic attack (TIA), and cerebral infarction without residual deficits
CPT/HCPCS: 99222; 99231-AI; 99232-AI

== ENCOUNTER 2016-12-07 10:25 | Inpatient (IN) | payer MEDICARE, MEDICAID ==
[~2016-12-07] VITALS: Ht 149.9 cm; Wt 55.6 kg
[~2016-12-07 10:25] MED LIST changes: +BETAPACE 80MG80 MG PO; +CATAPRES 0.1MG0.1 MG PO; +FLOVENT 220MCG7.9 GM IH; +NATURAL POTASS595 MG PO; +NORVASC 10MG10 MG PO
[2016-12-09 08:09] VITALS: BP 149/86; PULSE 80; TEMP 97.6
[2016-12-09 08:43] LABS: BASO # 0.1 (0.0-0.2); BASO % 0.8 % (0.0-2.0); EOS # 0.4 (0.0-0.7); EOS % 5.6 % (0-4.0); GRAN # 3.9 (1.4-6.5); GRAN % 50.9 % (42.2-75.2); HEMATOCRIT 40.7 % (37.0-47.0); HEMOGLOBIN 13.1 g/dl (12.5-16.0); LYMPH # 2.7 (1.2-3.4); LYMPH % 35.6 % (20.0-51.0); MEAN CELL VOLUME 92 fl (80.0-100.0); MEAN CORPUSCULAR HEMOGLOBIN 30 pg (27.0-31.0); MEAN CORPUSCULAR HGB CONC 32 g/dl (33.0-37.0); MEAN PLATELET VOLUME 12.6 fl (7.4-10.4); MONO # 0.5 (0.1-0.6); MONO % 6.8 % (1.7-9.3); PLATELET COUNT 139 K/mm3 (130-400); RED BLOOD COUNT 4.43 M/mm3 (4.10-5.30); WHITE BLOOD COUNT 7.7 K/mm3 (4.8-10.8)
[2016-12-09 08:48] LABS: PROTHROMBIN TIME 11.4 SECONDS (9.7-12.8)
[2016-12-09 08:54] LABS: ADJUSTED CALCIUM 9.8 mg/dL (8.4-10.2); BILIRUBIN,TOTAL 0.6 mg/dL (0.0-1.0); CALCIUM 9.8 mg/dL (8.4-10.2); CREATININE, serum 0.9 mg/dL (0.52-1.25); MAGNESIUM 1.9 mg/dL (1.6-2.3); POTASSIUM 3.3 mmol/L (3.4-5.0); TOTAL PROTEIN 7.6 gm/dL (6.4-8.2)
[2016-12-09 11:33] VITALS: BP 129/60; PULSE 60; TEMP 98.1
[2016-12-09 15:29] VITALS: BP 131/62; PULSE 61; TEMP 97.5
[2016-12-09 20:02] VITALS: BP 145/73; PULSE 68; TEMP 97.6
[2016-12-09 23:33] VITALS: BP 107/55; PULSE 60; TEMP 97.8
[2016-12-10 04:17] VITALS: BP 110/59; PULSE 60; TEMP 97.9
[2016-12-10 09:33] VITALS: BP 138/69; PULSE 62; TEMP 97.6
[2016-12-10 11:34] VITALS: BP 102/57; PULSE 64; TEMP 97.8
[2016-12-10 16:53] VITALS: BP 115/62; PULSE 60; TEMP 97.9
[2016-12-10 19:32] VITALS: BP 120/61; PULSE 60; TEMP 98.1
[2016-12-10 23:16] VITALS: BP 110/59; PULSE 60; TEMP 97.2
[2016-12-11 03:30] VITALS: BP 112/63; PULSE 59; TEMP 97.6
[2016-12-11 07:41] VITALS: BP 112/66; PULSE 62; TEMP 97.9
[2016-12-11 07:49] LABS: CALCIUM 9.7 mg/dL (8.4-10.2); CREATININE, serum 1.02 mg/dL (0.52-1.25); POTASSIUM 3.8 mmol/L (3.4-5.0)
[2016-12-11 11:59] VITALS: BP 102/56; PULSE 61; TEMP 97.6
[2016-12-11 16:10] VITALS: BP 113/62; PULSE 106; TEMP 98
[2016-12-11 20:17] VITALS: BP 126/57; PULSE 61; TEMP 98.7
[2016-12-11 23:27] VITALS: BP 125/70; PULSE 61; TEMP 98.7
[2016-12-12 04:54] VITALS: BP 127/74; PULSE 85; TEMP 98.5
[2016-12-12 08:09] VITALS: BP 127/67; PULSE 65; TEMP 97.4
[2016-12-12 12:07] VITALS: BP 99/45; PULSE 60; TEMP 97.7
[2016-12-12 16:25] VITALS: BP 108/56; PULSE 63; TEMP 97.4
[2016-12-13 00:20] VITALS: BP 153/65; PULSE 62; TEMP 98
[2016-12-13 03:11] VITALS: BP 113/63; PULSE 63; TEMP 98.5
[2016-12-13 08:26] VITALS: BP 129/68; PULSE 62; TEMP 98.5
[2016-12-13] MEDS ORDERED: PACERONE400 MG PO (11:43)
[2016-12-13] MEDS ORDERED: CARDIZEM CD 18180 MG PO (12:32)
== END 2016-12-13 13:16 | disposition home or self-care (01) | DRG 309 ==
LOC: MEDICAL 12-09 07:53
PROVIDERS: Internal Medicine Cardiovascular Disease
DX: I48.0 Paroxysmal atrial fibrillation (principal); E44.0 Moderate protein-calorie malnutrition; I47.1 Supraventricular tachycardia; Z95.0 Presence of cardiac pacemaker; I10 Essential (primary) hypertension

== ENCOUNTER 2017-07-15 21:30 | Emergency (ER) | payer MEDICARE, MEDICAID ==
[~2017-07-15] VITALS: Ht 147.3 cm; Wt 59.1 kg
[~2017-07-15 21:30] MED LIST changes: +CARDIZEM CD 18180 MG PO; +PACERONE400 MG PO
[2017-07-15 21:49] VITALS: BP 141/71; TEMP 97.7
[2017-07-15 23:39] LABS: COLLECTION METHOD CLEAN CATCH
[2017-07-15 23:46] LABS: PH 6 (5-8); URINE APPEARANCE Clear; URINE BACTERIA None Seen /hpf; URINE BILIRUBIN Negative (NEGATIVE); URINE BLOOD Negative (NEGATIVE); URINE COLOR Yellow; URINE GLUCOSE Negative (NEGATIVE); URINE KETONE Negative (NEGATIVE); URINE LEUKOCYTE ESTERASE Trace (NEGATIVE); URINE NITRATE Negative (NEGATIVE); URINE PROTEIN(semi-quant) Negative (NEGATIVE); URINE RBC 0-2 /hpf; URINE UROBILINOGEN Negative (NEGATIVE)
[2017-07-16 00:02] LABS: BASO # 0.1 (0.0-0.2); BASO % 0.7 % (0.0-2.0); EOS # 0.4 (0.0-0.7); GRAN # 4.8 (1.4-6.5); GRAN % 55.2 % (42.2-75.2); HEMOGLOBIN 11.7 g/dl (12.5-16.0); LYMPH # 2.8 (1.2-3.4); LYMPH % 32.1 % (20.0-51.0); MEAN CELL VOLUME 92 fl (80.0-100.0); MEAN CORPUSCULAR HEMOGLOBIN 30 pg (27.0-31.0); MEAN CORPUSCULAR HGB CONC 33 g/dl (33.0-37.0); MONO # 0.7 (0.1-0.6); MONO % 7.8 % (1.7-9.3); PLATELET COUNT 129 K/mm3 (130-400); RED BLOOD COUNT 3.85 M/mm3 (4.10-5.30); REDCELL DISTRIBUTION WIDTH-CV 14.7 % (11.5-14.5)
[2017-07-16 00:04] LABS: HEMATOCRIT 35.5 % (37.0-47.0)
[2017-07-16 00:11] LABS: ALANINE AMINOTRANSFERASE 43 U/L (9-52); ALBUMIN 3.5 gm/dL (3.5-5.0); ALKALINE PHOSPHATASE 84 U/L (50-136); ANION GAP 10 mmol/L (7-16); AST,SGOT 32 U/L (15-37); BILIRUBIN,TOTAL 0.5 mg/dL (0.0-1.0); BLOOD UREA NITROGEN 14 mg/dL (7-17); CALCIUM 9.1 mg/dL (8.4-10.2); CARBON DIOXIDE 29 mmol/L (22-30); CHLORIDE 102 mmol/L (98-107); CREATININE, serum 0.99 mg/dL (0.52-1.25); GLUCOSE 132 mg/dL (74-106); LIPASE 141 U/L (23-300); POTASSIUM 3.7 mmol/L (3.4-5.0); SODIUM 141 mmol/L (137-145); TOTAL PROTEIN 6.8 gm/dL (6.4-8.2)
[2017-07-16 00:30] LABS: TROPONIN-I < 0.012 ng/mL (0.000-0.034)
[2017-07-16 00:38] LABS: C-REACTIVE PROTEIN 1.1 mg/dL (0.0-0.9)
[2017-07-16] MEDS ORDERED: MIRALAX 255 GM255 GM PO (01:35)
[2017-07-16 01:55] VITALS: PULSE 67
== END 2017-07-16 01:55 | disposition home or self-care (01) ==
LOC: COL.ER 21:30
PROVIDERS: Emergency Medicine
DX: K59.00 Constipation, unspecified (principal); K40.90 Unilateral inguinal hernia, without obstruction or gangrene, not specified as recurrent; E78.5 Hyperlipidemia, unspecified; I10 Essential (primary) hypertension; Z79.51 Long term (current) use of inhaled steroids; Z79.82 Long term (current) use of aspirin
CPT/HCPCS: Q9967

== ENCOUNTER 2017-09-06 10:13 | Day surgery (SDC) | payer MEDICARE, MEDICAID ==
[2017-09-06] VITALS (7 sets, daily range): BP systolic 135–174; BP diastolic 65–91; PULSE 62–74; TEMP 97.4–98.2
[~2017-09-06] VITALS: Ht 147.3 cm; Wt 59.1 kg
[~2017-09-06 10:13] MED LIST changes: +MIRALAX 255 GM255 GM PO; +PACERONE200 MG PO; -PACERONE400 MG PO
[2017-09-06 11:36] LABS: BASO # 0.1 (0.0-0.2); BASO % 0.5 % (0.0-2.0); EOS # 0.1 (0.0-0.7); EOS % 1.3 % (0-4.0); GRAN # 7.3 (1.4-6.5); GRAN % 71.2 % (42.2-75.2); HEMATOCRIT 41.3 % (37.0-47.0); HEMOGLOBIN 13.1 g/dl (12.5-16.0); LYMPH # 2.2 (1.2-3.4); LYMPH % 21.1 % (20.0-51.0); MEAN CELL VOLUME 94 fl (80.0-100.0); MEAN CORPUSCULAR HEMOGLOBIN 30 pg (27.0-31.0); MEAN CORPUSCULAR HGB CONC 32 g/dl (33.0-37.0); MONO # 0.6 (0.1-0.6); MONO % 5.5 % (1.7-9.3); PLATELET COUNT 153 K/mm3 (130-400); RED BLOOD COUNT 4.39 M/mm3 (4.10-5.30); REDCELL DISTRIBUTION WIDTH-CV 14.6 % (11.5-14.5)
[2017-09-06] MEDS ORDERED: PROBIOTIC FORMU1 CAP PO (11:42)
[2017-09-06] MEDS ORDERED: MULTI VITAMINS1 TAB PO (11:42)
[2017-09-06] MEDS ORDERED: NATURAL E400 IU PO (11:43)
[2017-09-06] MEDS ORDERED: VITAMIN D 1001000 IU PO (11:44)
[2017-09-06 11:46] LABS: CREATININE, serum 0.96 mg/dL (0.52-1.25); POTASSIUM 3.7 mmol/L (3.4-5.0)
[2017-09-06] MEDS ORDERED: NORCO 325 MG-51 TAB PO (14:39)
== END 2017-09-06 16:00 | disposition home or self-care (01) ==
LOC: SDCO 10:13
PROVIDERS: Registered Nurse
DX: K40.90 Unilateral inguinal hernia, without obstruction or gangrene, not specified as recurrent (principal); I11.9 Hypertensive heart disease without heart failure; Z79.82 Long term (current) use of aspirin; Z79.899 Other long term (current) drug therapy; Z80.3 Family history of malignant neoplasm of breast; E78.00 Pure hypercholesterolemia, unspecified; M81.0 Age-related osteoporosis without current pathological fracture; Z86.73 Personal history of transient ischemic attack (TIA), and cerebral infarction without residual deficits; Z95.0 Presence of cardiac pacemaker
CPT/HCPCS: C1781; J0690; J2704; J3010; J7120

== ENCOUNTER 2017-12-17 11:59 | Day surgery (SDC) | payer MEDICARE, MEDICAID ==
[2017-12-17] VITALS (8 sets, daily range): BP systolic 138–175; BP diastolic 55–80; PULSE 53–74; TEMP 97.8
[~2017-12-17] VITALS: Ht 147.3 cm; Wt 60.9 kg
[~2017-12-17 11:59] MED LIST changes: +MULTI VITAMINS1 TAB PO; +NATURAL E400 IU PO; +NORCO 325 MG-51 TAB PO; +PROBIOTIC FORMU1 CAP PO; +VITAMIN D 1001000 IU PO
[2017-12-17] MEDS ORDERED: VITAMIN D31000 I1 PO (13:03)
[2017-12-17] MEDS ORDERED: NATURAL E400 IU PO (13:04)
[2017-12-17] MEDS ORDERED: PROBIOTIC COLON PO (13:05)
[2017-12-17] MEDS ORDERED: PACERONE200 MG PO (19:47)
[2017-12-17] MEDS ORDERED: CARDIZEM CD 18180 MG PO (19:54)
[2017-12-17] MEDS ORDERED: VITAMIN D 1001000 IU PO (19:55)
[2017-12-18 00:25] VITALS: BP 128/69; PULSE 66; TEMP 97.6
[2017-12-18 05:40] VITALS: BP 147/77; PULSE 70; TEMP 97.2
[2017-12-18 07:20] VITALS: BP 141/79; PULSE 74; TEMP 97.2
[2017-12-18] MEDS ORDERED: PERCOCET 325 MG1 TA2 PO (10:34)
[2017-12-18] MEDS ORDERED: IBU800 M1 PO (10:34)
[2017-12-18 10:55] VITALS: BP 150/59; PULSE 63; TEMP 97.6
== END 2017-12-18 12:00 | disposition home or self-care (01) ==
LOC: SDCO 11:59
DX: N83.322 Acquired atrophy of left fallopian tube (principal); N83.321 Acquired atrophy of right fallopian tube; N83.202 Unspecified ovarian cyst, left side; N83.201 Unspecified ovarian cyst, right side; N81.4 Uterovaginal prolapse, unspecified; N73.6 Female pelvic peritoneal adhesions (postinfective); I10 Essential (primary) hypertension; E78.5 Hyperlipidemia, unspecified; M19.90 Unspecified osteoarthritis, unspecified site; Z95.0 Presence of cardiac pacemaker; K21.9 Gastro-esophageal reflux disease without esophagitis; E11.9 Type 2 diabetes mellitus without complications; F32.9 Major depressive disorder, single episode, unspecified; M79.7 Fibromyalgia; Z96.652 Presence of left artificial knee joint; Z90.49 Acquired absence of other specified parts of digestive tract; Z88.8 Allergy status to other drugs, medicaments and biological substances; Z80.3 Family history of malignant neoplasm of breast
CPT/HCPCS: A4314; C2631; J0690; J1100; J1170; J1885; J2405; J2704; J2710; J3010; J7040; J7120

== ENCOUNTER 2018-08-08 21:47 | Observation (INO) | payer MEDICARE, MEDICAID ==
[~2018-08-08] VITALS: Ht 147.3 cm; Wt 51.8 kg
[~2018-08-08 21:47] MED LIST changes: +IBU800 M1 PO; +PERCOCET 325 MG1 TA2 PO; +PROBIOTIC COLON PO; +VITAMIN D31000 I1 PO
[2018-08-08 22:18] LABS: BASO # 0.1 (0.0-0.2); BASO % 0.6 % (0.0-2.0); EOS # 0.5 (0.0-0.7); EOS % 3.7 % (0-4.0); GRAN # 8.6 (1.4-6.5); GRAN % 65.7 % (42.2-75.2); HEMATOCRIT 42.8 % (37.0-47.0); HEMOGLOBIN 13.7 g/dl (12.5-16.0); LYMPH % 22.9 % (20.0-51.0); MEAN CELL VOLUME 94 fl (80.0-100.0); MEAN CORPUSCULAR HEMOGLOBIN 30 pg (27.0-31.0); MEAN CORPUSCULAR HGB CONC 32 g/dl (33.0-37.0); MEAN PLATELET VOLUME 12.8 fl (7.4-10.4); MONO # 0.9 (0.1-0.6); MONO % 6.8 % (1.7-9.3); PLATELET COUNT 176 K/mm3 (130-400); RED BLOOD COUNT 4.56 M/mm3 (4.10-5.30); REDCELL DISTRIBUTION WIDTH-CV 13.5 % (11.5-14.5)
[2018-08-08 22:26] LABS: PROTHROMBIN TIME 11.3 SECONDS (9.7-12.8)
[2018-08-08 22:29] LABS: PARTIAL THROMBOPLASTIN TIME 33.1 SECONDS (26.0-37.0)
[2018-08-08 22:52] LABS: ALANINE AMINOTRANSFERASE 20 U/L (9-52); ALBUMIN 4.3 gm/dL (3.5-5.0); ALKALINE PHOSPHATASE 131 U/L (50-136); ANION GAP 8 mmol/L (7-16); AST,SGOT 32 U/L (15-37); BILIRUBIN,TOTAL 0.7 mg/dL (0.0-1.0); BLOOD UREA NITROGEN 16 mg/dL (7-17); C-REACTIVE PROTEIN 0.8 mg/dL (0.0-0.9); CARBON DIOXIDE 26 mmol/L (22-30); CHLORIDE 108 mmol/L (98-107); CREATININE, serum 1.05 (0.52-1.25); GLUCOSE 142 mg/dL (74-106); LIPASE 178 U/L (23-300); POTASSIUM 4.3 mmol/L (3.4-5.0); SODIUM 142 mmol/L (137-145); TOTAL PROTEIN 8.3 gm/dL (6.4-8.2)
[2018-08-08 23:02] LABS: TROPONIN-I < 0.012 ng/mL (0.000-0.035)
[2018-08-08] MEDS ORDERED: CATAPRES0.2 MG PO (23:51)
[2018-08-08] MEDS ORDERED: CARDIZEM CD 18180 MG PO (23:52)
[2018-08-08] MEDS ORDERED: ASPIRIN 81M81 MG/TA2 PO (23:52)
[2018-08-08] MEDS ORDERED: COZAAR100 MG PO (23:53)
[2018-08-08] MEDS ORDERED: FLOVENT 220MCG7.9 GM IH (23:53)
[2018-08-08] MEDS ORDERED: MULTI-VITAMIN W1 TA1 PO (23:54)
[2018-08-09] VITALS (10 sets, daily range): BP systolic 132–174; BP diastolic 55–88; PULSE 62–82; TEMP 97.9–98.3
[2018-08-09] MEDS ORDERED: KLOR-CON/EF25 MEQ PO
[2018-08-09] MEDS ORDERED: PROBIOTIC FORMU1 CAP PO (00:01)
[2018-08-09] MEDS ORDERED: ULTRAM 50MG TAB50 MG PO (00:01)
[2018-08-09] MEDS ORDERED: VITAMIN D 1001000 IU PO (00:02)
[2018-08-09 01:27] LABS: COLLECTION METHOD CLEAN CATCH
[2018-08-09 01:33] LABS: PH 7 (5-8); SQUAMOUS EPITHELIAL None Seen /hpf; URINE APPEARANCE Clear; URINE BACTERIA None Seen /hpf; URINE BILIRUBIN Negative (NEGATIVE); URINE BLOOD Negative (NEGATIVE); URINE COLOR Yellow; URINE GLUCOSE Negative (NEGATIVE); URINE KETONE Negative (NEGATIVE); URINE LEUKOCYTE ESTERASE Negative (NEGATIVE); URINE NITRATE Negative (NEGATIVE); URINE PROTEIN(semi-quant) Negative (NEGATIVE); URINE RBC 0-2 /hpf; URINE UROBILINOGEN Negative (NEGATIVE)
[2018-08-09 04:26] LABS: BASO # 0.1 (0.0-0.2); BASO % 0.7 % (0.0-2.0); EOS # 0.4 (0.0-0.7); EOS % 3.5 % (0-4.0); GRAN # 7.1 (1.4-6.5); GRAN % 58.8 % (42.2-75.2); HEMATOCRIT 39.2 % (37.0-47.0); HEMOGLOBIN 12.5 g/dl (12.5-16.0); LYMPH # 3.8 (1.2-3.4); MEAN CELL VOLUME 94 fl (80.0-100.0); MEAN CORPUSCULAR HEMOGLOBIN 30 pg (27.0-31.0); MEAN CORPUSCULAR HGB CONC 32 g/dl (33.0-37.0); MEAN PLATELET VOLUME 12.9 fl (7.4-10.4); MONO # 0.7 (0.1-0.6); MONO % 5.8 % (1.7-9.3); PLATELET COUNT 161 K/mm3 (130-400); RED BLOOD COUNT 4.19 M/mm3 (4.10-5.30); REDCELL DISTRIBUTION WIDTH-CV 13.6 % (11.5-14.5)
[2018-08-09 04:37] LABS: ANION GAP 8 mmol/L (7-16); BLOOD UREA NITROGEN 13 mg/dL (7-17); CALCIUM 9.3 mg/dL (8.4-10.2); CARBON DIOXIDE 28 mmol/L (22-30); CHLORIDE 106 mmol/L (98-107); GLUCOSE 117 mg/dL (74-106); POTASSIUM 3.6 mmol/L (3.4-5.0); SODIUM 142 mmol/L (137-145)
[2018-08-09 04:49] LABS: TROPONIN-I < 0.012 ng/mL (0.000-0.035)
== END 2018-08-09 18:00 | disposition home or self-care (01) ==
LOC: COL.ER 21:47 → MEDICAL 23:20
PROVIDERS: Emergency Medicine; Nurse Practitioner; ADMIT Internal Medicine
DX: R07.89 Other chest pain (principal); M79.89 Other specified soft tissue disorders; I10 Essential (primary) hypertension; I47.1 Supraventricular tachycardia; E78.5 Hyperlipidemia, unspecified; M79.7 Fibromyalgia; E11.9 Type 2 diabetes mellitus without complications; M19.90 Unspecified osteoarthritis, unspecified site; K21.9 Gastro-esophageal reflux disease without esophagitis; F32.9 Major depressive disorder, single episode, unspecified; Z95.0 Presence of cardiac pacemaker; Z79.82 Long term (current) use of aspirin; Z79.51 Long term (current) use of inhaled steroids; Z96.652 Presence of left artificial knee joint; Z90.49 Acquired absence of other specified parts of digestive tract; Z86.73 Personal history of transient ischemic attack (TIA), and cerebral infarction without residual deficits; Z80.3 Family history of malignant neoplasm of breast; Z82.49 Family history of ischemic heart disease and other diseases of the circulatory system; Z88.8 Allergy status to other drugs, medicaments and biological substances
CPT/HCPCS: A9500; G0378; J1650; J2785; Q9967

== ENCOUNTER → 2018-12-27 | Outpatient (CLI) | payer MEDICARE, MEDICAID ==
[~2018-12-27] MED LIST changes: +CATAPRES0.2 MG PO; +KLOR-CON/EF25 MEQ PO; +MULTI-VITAMIN W1 TA1 PO
[2018-12-27 13:31] LABS: BASO # 0.1 (0.0-0.2); BASO % 0.7 % (0.0-2.0); EOS # 0.5 (0.0-0.7); EOS % 6.5 % (0-4.0); GRAN % 43.7 % (42.2-75.2); HEMATOCRIT 42.8 % (37.0-47.0); HEMOGLOBIN 13.7 g/dl (12.5-16.0); LYMPH # 2.8 (1.2-3.4); MEAN CELL VOLUME 93 fl (80.0-100.0); MEAN CORPUSCULAR HEMOGLOBIN 30 pg (27.0-31.0); MEAN CORPUSCULAR HGB CONC 32 g/dl (33.0-37.0); MEAN PLATELET VOLUME 12.8 fl (7.4-10.4); MONO # 0.6 (0.1-0.6); PLATELET COUNT 125 K/mm3 (130-400); RED BLOOD COUNT 4.59 M/mm3 (4.10-5.30); REDCELL DISTRIBUTION WIDTH-CV 13.9 % (11.5-14.5)
[2018-12-27 13:40] LABS: CALCIUM 9.5 mg/dL (8.4-10.2); CREATININE, serum 0.96 (0.52-1.25); POTASSIUM 3.9 mmol/L (3.4-5.0)
== END ==
LOC: COL.RAD 12:15
PROVIDERS: Family Medicine
DX: I51.7 Cardiomegaly (principal); R05 Cough; Z79.899 Other long term (current) drug therapy; Z95.0 Presence of cardiac pacemaker

== ENCOUNTER → 2020-07-04 | Outpatient (REF) | LOC: ZLAB.STJ 14:52 | DX: E11.9 Type 2 diabetes mellitus without complications (principal) ==

== ENCOUNTER → 2020-10-25 | Outpatient (CLI) | payer MEDICARE, MEDICAID | LOC: ZLAB.STJ 14:12 | DX: E11.9 Type 2 diabetes mellitus without complications (principal) ==

== ENCOUNTER → 2020-11-07 | Outpatient (CLI) | payer MEDICARE, MEDICAID ==
[2020-11-07 15:43] LABS: BASO # 0.1 (0.0-0.2); BASO % 0.6 % (0.0-2.0); EOS # 0.4 (0.0-0.7); EOS % 4.8 % (0-4.0); LYMPH # 2.5 (1.2-3.4); LYMPH % 29.7 % (20.0-51.0); MEAN CELL VOLUME 90 fl (80.0-100.0); MEAN CORPUSCULAR HGB CONC 32 g/dl (33.0-37.0); MEAN PLATELET VOLUME 13.8 fl (7.4-10.4); MONO # 0.5 (0.1-0.6); MONO % 5.7 % (1.7-9.3); PLATELET COUNT 174 K/mm3 (130-400); RED BLOOD COUNT 3.29 M/mm3 (4.10-5.30); REDCELL DISTRIBUTION WIDTH-CV 13.2 % (11.5-14.5)
[2020-11-07 15:44] LABS: HEMATOCRIT 29.6 % (37.0-47.0); HEMOGLOBIN 9.5 g/dl (12.5-16.0); MEAN CORPUSCULAR HEMOGLOBIN 29 pg (27.0-31.0)
[2020-11-07 15:55] LABS: ALBUMIN 2.9 gm/dL (3.4-4.8); BILIRUBIN,TOTAL 0.4 mg/dL (0.2-1.2); CALCIUM 9.1 mg/dL (8.4-10.2); CREATININE, serum 0.8 mg/dL (0.57-1.11); TOTAL PROTEIN 5.7 gm/dL (6.2-8.1)
[2020-11-07 16:15] LABS: THYROID STIMULATING HORMONE 0.876 uIU/mL (0.350-4.940)
== END ==
LOC: ZLAB.STJ 13:41
PROVIDERS: Family Medicine
DX: I48.0 Paroxysmal atrial fibrillation (principal); I69.351 Hemiplegia and hemiparesis following cerebral infarction affecting right dominant side; D69.6 Thrombocytopenia, unspecified; E11.9 Type 2 diabetes mellitus without complications

== ENCOUNTER → 2020-11-18 | Outpatient (CLI) | payer MEDICARE, MEDICAID | LOC: ZCOL.LAB 15:39 | DX: D64.9 Anemia, unspecified (principal) ==

== ENCOUNTER → 2020-11-19 | Outpatient (CLI) | payer MEDICARE, MEDICAID ==
[2020-11-20 06:27] LABS: BASO # 0.1 K/mm3 (0.0-0.2); BASO % 0.6 % (0.0-2.0); EOS # 0.5 K/mm3 (0.0-0.7); EOS % 5.6 % (0-4.0); GRAN # 5.3 K/mm3 (1.4-6.5); LYMPH # 2.4 K/mm3 (1.2-3.4); LYMPH % 27.3 % (20.0-51.0); MEAN CELL VOLUME 95 fl (80.0-100.0); MEAN CORPUSCULAR HGB CONC 31 g/dl (33.0-37.0); MEAN PLATELET VOLUME 12.8 fl (7.4-10.4); MONO # 0.6 K/mm3 (0.1-0.6); MONO % 6.3 % (1.7-9.3); PLATELET COUNT 170 K/mm3 (130-400); RED BLOOD COUNT 3.43 M/mm3 (4.10-5.30)
[2020-11-20 06:39] LABS: HEMATOCRIT 32.4 % (37.0-47.0); HEMOGLOBIN 9.9 g/dl (12.5-16.0); MEAN CORPUSCULAR HEMOGLOBIN 29 pg (27.0-31.0)
== END ==
LOC: ZCOL.LAB 15:10
PROVIDERS: Family Medicine
DX: D64.9 Anemia, unspecified (principal)

== ENCOUNTER → 2020-11-22 | Outpatient (CLI) | payer MEDICARE, MEDICAID ==
[2020-11-22 16:28] LABS: IRON,SERUM 51 ug/dL (35-150)
[2020-11-22 16:37] LABS: TOTAL IRON BINDING CAPACITY 237 ug/dL (265-497)
== END ==
LOC: ZLAB.STJ 15:59
PROVIDERS: Family Medicine
DX: D64.9 Anemia, unspecified (principal)

== ENCOUNTER → 2021-01-27 | Outpatient (CLI) | payer MEDICARE, MEDICAID | LOC: ZLAB.STJ 16:11 | DX: M10.9 Gout, unspecified (principal) ==

== ENCOUNTER 2021-02-06 22:09 | Emergency (ER) | payer MEDICARE, MEDICAID ==
[~2021-02-06] VITALS: Ht 167.6 cm; Wt 68.2 kg
[2021-02-06 22:11] VITALS: TEMP 97.6
[2021-02-06 23:11] LABS: COLLECTION METHOD CATHETER
[2021-02-06 23:14] LABS: HEMOGLOBIN 11.5 g/dl (12.5-16.0); MEAN CELL VOLUME 87 fl (80.0-100.0); MEAN CORPUSCULAR HEMOGLOBIN 29 pg (27-31); MEAN CORPUSCULAR HGB CONC 33 g/dl (33.0-37.0); MEAN PLATELET VOLUME 12.6 fl (7.4-10.4); PLATELET COUNT 203 K/mm3 (130-400); RED BLOOD COUNT 4.01 M/mm3 (4.10-5.30); REDCELL DISTRIBUTION WIDTH-CV 13.2 % (11.5-14.5)
[2021-02-06 23:30] LABS: MUCOUS Present (NOT PRESENT); PH 5 (5-8); SQUAMOUS EPITHELIAL None Seen /hpf (0-10); URINE APPEARANCE Clear (CLEAR/HAZY); URINE BACTERIA None Seen /hpf (NONE SEEN); URINE BILIRUBIN Negative (NEGATIVE); URINE BLOOD Negative (NEGATIVE); URINE COLOR Yellow (YELLOW); URINE GLUCOSE Negative (NEGATIVE); URINE KETONE Negative (NEGATIVE); URINE LEUKOCYTE ESTERASE Negative (NEGATIVE); URINE NITRATE Negative (NEGATIVE); URINE PROTEIN(semi-quant) Negative (NEGATIVE); URINE RBC 0-2 /hpf (0-2); URINE UROBILINOGEN Negative (NEGATIVE)
[2021-02-06 23:32] LABS: ALBUMIN 3.2 gm/dL (3.4-4.8); BILIRUBIN,TOTAL 0.4 mg/dL (0.2-1.2); C-REACTIVE PROTEIN 0.42 mg/dL (0.00-0.50); CALCIUM 8.7 mg/dL (8.4-10.2); CREATININE, serum 1.31 mg/dL (0.57-1.11); HEMATOCRIT 34.7 % (37.0-47.0); POTASSIUM 3.8 mmol/L (3.5-4.5); TOTAL PROTEIN 5.8 gm/dL (6.2-8.1)
[2021-02-06 23:38] LABS: TROPONIN-I 0.014 ng/mL (0.00-0.033)
[2021-02-06 23:44] LABS: BAND 4 % (0-10); EOSINOPHIL 3 % (0-4); LYMPHOCYTE 36 % (20.0-51.0); NEUTROPHILS 53 % (42.0-75.2)
[2021-02-06 23:45] LABS: BURR CELLS 1+; OVALOCYTES 1+; POIKILOCYTOSIS 2+; SCHISTOCYTES 1+
[2021-02-07 03:53] VITALS: BP 116/54; PULSE 65
== END 2021-02-07 03:53 ==
LOC: COL.ER 22:09
PROVIDERS: Nurse Practitioner
DX: D72.829 Elevated white blood cell count, unspecified (principal); R74.01 Elevation of levels of liver transaminase levels; I48.91 Unspecified atrial fibrillation; E11.9 Type 2 diabetes mellitus without complications; Z86.73 Personal history of transient ischemic attack (TIA), and cerebral infarction without residual deficits; Z95.0 Presence of cardiac pacemaker; Z79.899 Other long term (current) drug therapy
CPT/HCPCS: J7030; Q9967

== ENCOUNTER → 2021-02-11 | Outpatient (CLI) | payer MEDICARE, MEDICAID ==
[2021-02-11 21:06] LABS: BASO % 0.2 % (0.0-2.0); EOS # 0.6 K/mm3 (0.0-0.7); EOS % 4.5 % (0.0-4.0); GRAN # 7.9 K/mm3 (1.4-6.5); GRAN % 64.3 % (42.2-75.2); HEMOGLOBIN 10.1 g/dl (12.5-16.0); LYMPH # 2.9 K/mm3 (1.2-3.4); LYMPH % 23.5 % (20.0-51.0); MEAN CELL VOLUME 92 fl (80.0-100.0); MEAN CORPUSCULAR HEMOGLOBIN 29 pg (27-31); MEAN CORPUSCULAR HGB CONC 31 g/dl (33.0-37.0); MEAN PLATELET VOLUME 13.4 fl (7.4-10.4); MONO # 0.9 K/mm3 (0.1-0.6); MONO % 7.1 % (1.7-9.3); PLATELET COUNT 164 K/mm3 (130-400); RED BLOOD COUNT 3.52 M/mm3 (4.10-5.30); REDCELL DISTRIBUTION WIDTH-CV 13.8 % (11.5-14.5)
[2021-02-11 21:11] LABS: HEMATOCRIT 32.5 % (37.0-47.0)
[2021-02-11 21:19] LABS: ALBUMIN 3.1 gm/dL (3.4-4.8); BILIRUBIN,TOTAL 0.6 mg/dL (0.2-1.2); CALCIUM 8.9 mg/dL (8.4-10.2); CREATININE, serum 1.53 mg/dL (0.57-1.11); POTASSIUM 3.3 mmol/L (3.5-4.5); TOTAL PROTEIN 5.9 gm/dL (6.2-8.1)
== END ==
LOC: ZLAB.STJ 14:10
PROVIDERS: Family Medicine
DX: D64.9 Anemia, unspecified (principal); E11.9 Type 2 diabetes mellitus without complications; I10 Essential (primary) hypertension

== ENCOUNTER → 2021-02-12 | Outpatient (CLI) | payer MEDICARE, MEDICAID | LOC: ZLAB.STJ 15:09 | DX: E11.9 Type 2 diabetes mellitus without complications (principal) ==

== ENCOUNTER → 2021-02-18 | Outpatient (CLI) | payer MEDICARE, MEDICAID ==
[2021-02-18 16:38] LABS: BASO % 0.4 % (0.0-2.0); EOS # 0.4 K/mm3 (0.0-0.7); EOS % 3.8 % (0.0-4.0); GRAN # 6.3 K/mm3 (1.4-6.5); GRAN % 66.6 % (42.2-75.2); LYMPH # 2.2 K/mm3 (1.2-3.4); LYMPH % 23.3 % (20.0-51.0); MEAN CELL VOLUME 93 fl (80.0-100.0); MEAN CORPUSCULAR HGB CONC 31 g/dl (33.0-37.0); MEAN PLATELET VOLUME 13.1 fl (7.4-10.4); MONO # 0.5 K/mm3 (0.1-0.6); MONO % 5.6 % (1.7-9.3); PLATELET COUNT 171 K/mm3 (130-400); RED BLOOD COUNT 3.41 M/mm3 (4.10-5.30); REDCELL DISTRIBUTION WIDTH-CV 13.6 % (11.5-14.5)
[2021-02-18 16:40] LABS: HEMATOCRIT 31.6 % (37.0-47.0); HEMOGLOBIN 9.8 g/dl (12.5-16.0); MEAN CORPUSCULAR HEMOGLOBIN 29 pg (27-31)
== END ==
LOC: ZLAB.STJ 15:56
PROVIDERS: Family Medicine
DX: D64.9 Anemia, unspecified (principal); R41.82 Altered mental status, unspecified

== ENCOUNTER → 2021-02-19 | Outpatient (CLI) | payer MEDICARE, MEDICAID | LOC: ZLAB.STJ 13:27 | DX: E87.2 Acidosis (principal) ==

== ENCOUNTER → 2021-03-27 | Outpatient (CLI) | payer MEDICARE, MEDICAID | LOC: COL.RAD 11:23 | DX: M19.022 Primary osteoarthritis, left elbow (principal) ==

== ENCOUNTER 2021-04-03 14:53 | Emergency (ER) | payer MEDICARE, MEDICAID ==
[~2021-04-03] VITALS: Ht 167.6 cm; Wt 65.9 kg
[2021-04-03 19:14] VITALS: BP 110/69; PULSE 72; TEMP 97.8
== END 2021-04-03 19:10 | disposition home or self-care (01) ==
LOC: COL.ER 14:53
DX: M25.811 Other specified joint disorders, right shoulder (principal)

== ENCOUNTER 2021-07-03 15:27 | Inpatient (IN) | payer MEDICARE, MEDICAID ==
[2021-07-03] VITALS (201 sets, daily range): BP systolic 145; BP diastolic 70; PULSE 60; TEMP 97.5; O2SAT 85–100
[~2021-07-03] VITALS: Ht 154.9 cm; Wt 61.9 kg
[2021-07-03 16:03] LABS: COLLECTION METHOD CATHETER
[2021-07-03 16:08] LABS: BASO % 0.6 % (0.0-2.0); EOS # 0.4 K/mm3 (0.0-0.7); EOS % 4.9 % (0.0-4.0); GRAN # 4.7 K/mm3 (1.4-6.5); GRAN % 65.9 % (42.2-75.2); LYMPH # 1.8 K/mm3 (1.2-3.4); LYMPH % 24.9 % (20.0-51.0); MEAN CELL VOLUME 97 fl (80.0-100.0); MEAN CORPUSCULAR HGB CONC 32 g/dl (33.0-37.0); MEAN PLATELET VOLUME 13.1 fl (7.4-10.4); MONO # 0.2 K/mm3 (0.1-0.6); MONO % 3.4 % (1.7-9.3); PLATELET COUNT 175 K/mm3 (130-400); RED BLOOD COUNT 2.94 M/mm3 (4.10-5.30); REDCELL DISTRIBUTION WIDTH-CV 14.2 % (11.5-14.5)
[2021-07-03 16:11] LABS: HEMATOCRIT 28.5 % (37.0-47.0); HEMOGLOBIN 9.1 g/dl (12.5-16.0); MEAN CORPUSCULAR HEMOGLOBIN 31 pg (27-31)
[2021-07-03 16:14] LABS: AMORPHOUS CRYSTAL Present (NOT PRESENT); MUCOUS Present (NOT PRESENT); PH 5 (5-8); SQUAMOUS EPITHELIAL 0-2 /hpf (0-10); URINE APPEARANCE Hazy (CLEAR/HAZY); URINE BACTERIA Many /hpf (NONE SEEN); URINE BILIRUBIN Negative (NEGATIVE); URINE BLOOD Negative (NEGATIVE); URINE COLOR Yellow (YELLOW); URINE GLUCOSE Negative (NEGATIVE); URINE KETONE Negative (NEGATIVE); URINE LEUKOCYTE ESTERASE Negative (NEGATIVE); URINE NITRATE Negative (NEGATIVE); URINE PROTEIN(semi-quant) Negative (NEGATIVE); URINE RBC 0-2 /hpf (0-2); URINE UROBILINOGEN Negative (NEGATIVE)
[2021-07-03 16:27] LABS: ALBUMIN 3.4 gm/dL (3.4-4.8); BILIRUBIN,TOTAL 0.9 mg/dL (0.2-1.2); CREATININE, serum 1.3 mg/dL (0.57-1.11); POTASSIUM 4.1 mmol/L (3.5-4.5); TOTAL PROTEIN 6.2 gm/dL (6.2-8.1)
[2021-07-03] MEDS ORDERED: [UNRECOGNIZED DRUG - OTHER] TOP (16:53)
[2021-07-03] MEDS ORDERED: SENNA-LAX8.6 MG PO (16:54)
[2021-07-03] MEDS ORDERED: MUCUS RELIEF200 MG PO (16:54)
[2021-07-03] MEDS ORDERED: ZOFRAN ODT4 MG PO (16:55)
[2021-07-03] MEDS ORDERED: LIPITOR 40MG TA40 MG PO (17:43)
[2021-07-03] MEDS ORDERED: IMODIUM 2MG CAPS2 MG PO (17:43)
[2021-07-03] MEDS ORDERED: VOLTAREN GEL 1%1 TU TP (17:44)
[2021-07-03] MEDS ORDERED: CYANOCOBAL1000 MCG/M IM (17:44)
[2021-07-03] MEDS ORDERED: FLEXERIL5 MG PO (17:44)
[2021-07-03] MEDS ORDERED: NEURONTIN300 MG/CAP PO (17:45)
[2021-07-03] MEDS ORDERED: GLUCOPHAGE500 MG/TAB PO (17:45)
[2021-07-03] MEDS ORDERED: ZYLOPRIM 100MG100 MG PO (17:46)
[2021-07-03] MEDS ORDERED: ZOLOFT 50MG50 MG PO (17:46)
[2021-07-03] MEDS ORDERED: NORCO 325 MG-7.1 TAB PO (17:46)
[2021-07-03] MEDS ORDERED: ELIQUIS 2.5 PO (17:47)
[2021-07-03] MEDS ORDERED: COZAAR100 MG PO (17:47)
[2021-07-03] MEDS ORDERED: PLAVIX 75MG TAB75 MG PO (17:47)
[2021-07-03] MEDS ORDERED: COREG 25MG25 MG/TAB PO (17:48)
[2021-07-03] MEDS ORDERED: ENSURE PLUS 24240 ML (17:48)
[2021-07-03] MEDS ORDERED: KEPPRA250 MG PO (17:49)
[2021-07-03 18:52] LABS: HEMATOCRIT 26.2 % (37.0-47.0); HEMOGLOBIN 8.3 g/dl (12.5-16.0)
[2021-07-03] MEDS ORDERED: SYSTANE BALANCE10 M1 OP (20:44)
[2021-07-03 23:52] LABS: HEMATOCRIT 26.7 % (37.0-47.0); HEMOGLOBIN 8.1 g/dl (12.5-16.0)
[2021-07-04] VITALS (474 sets, daily range): BP systolic 136–172; BP diastolic 60–94; PULSE 60–73; TEMP 98–99; O2SAT 90–100
[2021-07-04 06:15] LABS: HEMATOCRIT 25.3 % (37.0-47.0); HEMOGLOBIN 7.8 g/dl (12.5-16.0)
[2021-07-04 18:54] LABS: HEMATOCRIT 28.2 % (37.0-47.0)
[2021-07-05] VITALS (7 sets, daily range): BP systolic 138–170; BP diastolic 51–80; PULSE 60–74; TEMP 97.4–98.7
[2021-07-05 00:26] LABS: HEMATOCRIT 26.1 % (37.0-47.0); HEMOGLOBIN 8.4 g/dl (12.5-16.0)
[2021-07-05 06:55] LABS: BASO % 0.6 % (0.0-2.0); EOS # 0.5 K/mm3 (0.0-0.7); EOS % 6.6 % (0.0-4.0); GRAN # 3.6 K/mm3 (1.4-6.5); GRAN % 50.9 % (42.2-75.2); LYMPH # 2.5 K/mm3 (1.2-3.4); LYMPH % 35.2 % (20.0-51.0); MEAN CELL VOLUME 94 fl (80.0-100.0); MEAN CORPUSCULAR HGB CONC 33 g/dl (33.0-37.0); MONO # 0.5 K/mm3 (0.1-0.6); MONO % 6.6 % (1.7-9.3); PLATELET COUNT 123 K/mm3 (130-400); RED BLOOD COUNT 2.49 M/mm3 (4.10-5.30); REDCELL DISTRIBUTION WIDTH-CV 14.1 % (11.5-14.5)
[2021-07-05 06:58] LABS: HEMATOCRIT 23.5 % (37.0-47.0); HEMOGLOBIN 7.8 g/dl (12.5-16.0); MEAN CORPUSCULAR HEMOGLOBIN 31 pg (27-31)
[2021-07-05 07:01] LABS: CALCIUM 8.4 mg/dL (8.4-10.2); CREATININE, serum 1.05 mg/dL (0.57-1.11); MAGNESIUM 1.7 mg/dL (1.6-2.6); POTASSIUM 3.4 mmol/L (3.5-4.5)
[2021-07-05 13:14] LABS: HEMATOCRIT 25.8 % (37.0-47.0); HEMOGLOBIN 8.2 g/dl (12.5-16.0)
[2021-07-06 01:16] LABS: HEMOGLOBIN 7.5 g/dl (12.5-16.0)
[2021-07-06 04:16] VITALS: BP 126/51; PULSE 65; TEMP 97.6
[2021-07-06 08:20] VITALS: BP 173/60; PULSE 66; TEMP 98.2
[2021-07-06 08:35] LABS: HEMATOCRIT 23.4 % (37.0-47.0); HEMOGLOBIN 7.6 g/dl (12.5-16.0)
[2021-07-06 11:13] LABS: CALCIUM 9.1 mg/dL (8.4-10.2); CREATININE, serum 1.05 mg/dL (0.57-1.11); POTASSIUM 3.4 mmol/L (3.5-4.5)
[2021-07-06 11:53] VITALS: BP 140/75; PULSE 72; TEMP 98.1
[2021-07-06 15:54] VITALS: BP 153/70; PULSE 66; TEMP 98.4
[2021-07-06 17:57] LABS: HEMATOCRIT 26.6 % (37.0-47.0); HEMOGLOBIN 8.4 g/dl (12.5-16.0)
[2021-07-06 21:15] VITALS: BP 151/66; PULSE 66; TEMP 98
[2021-07-06 23:52] VITALS: BP 112/50; PULSE 64; TEMP 97.7
[2021-07-07] VITALS (9 sets, daily range): BP systolic 103–165; BP diastolic 39–65; PULSE 57–69; TEMP 97.6–98.4
[2021-07-07 07:32] LABS: BASO % 0.3 % (0.0-2.0); EOS # 0.4 K/mm3 (0.0-0.7); EOS % 6.3 % (0.0-4.0); GRAN # 3.2 K/mm3 (1.4-6.5); GRAN % 50.4 % (42.2-75.2); LYMPH # 2.3 K/mm3 (1.2-3.4); LYMPH % 36.5 % (20.0-51.0); MEAN CELL VOLUME 98 fl (80.0-100.0); MEAN CORPUSCULAR HGB CONC 32 g/dl (33.0-37.0); MEAN PLATELET VOLUME 13.9 fl (7.4-10.4); MONO # 0.4 K/mm3 (0.1-0.6); MONO % 6.3 % (1.7-9.3); PLATELET COUNT 110 K/mm3 (130-400); RED BLOOD COUNT 2.26 M/mm3 (4.10-5.30); REDCELL DISTRIBUTION WIDTH-CV 14.6 % (11.5-14.5)
[2021-07-07 07:33] LABS: HEMATOCRIT 22.1 % (37.0-47.0); MEAN CORPUSCULAR HEMOGLOBIN 31 pg (27-31)
[2021-07-07 07:40] LABS: ALBUMIN 2.6 gm/dL (3.4-4.8); CALCIUM 8.6 mg/dL (8.4-10.2); MAGNESIUM 1.7 mg/dL (1.6-2.6); PHOSPHOROUS 3.9 mg/dL (2.3-4.7); POTASSIUM 4.6 mmol/L (3.5-4.5)
[2021-07-07 20:40] LABS: HEMATOCRIT 32.1 % (37.0-47.0); HEMOGLOBIN 10.3 g/dl (12.5-16.0)
[2021-07-08 00:01] VITALS: BP 138/57; PULSE 59; TEMP 97.7
[2021-07-08 04:39] VITALS: BP 157/63; PULSE 67; TEMP 97.7
[2021-07-08 06:34] LABS: BASO % 0.5 % (0.0-2.0); EOS # 0.5 K/mm3 (0.0-0.7); EOS % 6.2 % (0.0-4.0); GRAN # 5.1 K/mm3 (1.4-6.5); GRAN % 61.3 % (42.2-75.2); LYMPH # 2.1 K/mm3 (1.2-3.4); LYMPH % 25.5 % (20.0-51.0); MEAN CELL VOLUME 95 fl (80.0-100.0); MEAN CORPUSCULAR HGB CONC 33 g/dl (33.0-37.0); MEAN PLATELET VOLUME 13.6 fl (7.4-10.4); MONO # 0.5 K/mm3 (0.1-0.6); MONO % 6.1 % (1.7-9.3); PLATELET COUNT 172 K/mm3 (130-400); RED BLOOD COUNT 3.16 M/mm3 (4.10-5.30); REDCELL DISTRIBUTION WIDTH-CV 14.2 % (11.5-14.5)
[2021-07-08 06:36] LABS: HEMOGLOBIN 9.8 g/dl (12.5-16.0); MEAN CORPUSCULAR HEMOGLOBIN 31 pg (27-31)
[2021-07-08 06:46] LABS: CALCIUM 9.1 mg/dL (8.4-10.2); CREATININE, serum 0.98 mg/dL (0.57-1.11); MAGNESIUM 1.7 mg/dL (1.6-2.6); PHOSPHOROUS 3.9 mg/dL (2.3-4.7); POTASSIUM 4.4 mmol/L (3.5-4.5)
[2021-07-08 07:31] VITALS: BP 148/59; PULSE 68; TEMP 97.5
[2021-07-08 11:39] VITALS: BP 150/82; PULSE 65; TEMP 97.9
[2021-07-08 20:25] VITALS: BP 160/70; PULSE 69; TEMP 98.2
[2021-07-08 23:30] VITALS: BP 144/51; PULSE 67; TEMP 97.8
[2021-07-09 03:26] VITALS: BP 149/59; PULSE 61; TEMP 98.5
[2021-07-09 06:17] LABS: BASO % 0.4 % (0.0-2.0); EOS # 0.4 K/mm3 (0.0-0.7); EOS % 5.9 % (0.0-4.0); GRAN # 3.4 K/mm3 (1.4-6.5); GRAN % 48.2 % (42.2-75.2); LYMPH # 2.7 K/mm3 (1.2-3.4); LYMPH % 38.7 % (20.0-51.0); MEAN CELL VOLUME 95 fl (80.0-100.0); MEAN CORPUSCULAR HGB CONC 33 g/dl (33.0-37.0); MEAN PLATELET VOLUME 12.8 fl (7.4-10.4); MONO # 0.5 K/mm3 (0.1-0.6); MONO % 6.5 % (1.7-9.3); PLATELET COUNT 147 K/mm3 (130-400); RED BLOOD COUNT 2.82 M/mm3 (4.10-5.30); REDCELL DISTRIBUTION WIDTH-CV 14.1 % (11.5-14.5)
[2021-07-09 06:18] LABS: HEMATOCRIT 26.7 % (37.0-47.0); HEMOGLOBIN 8.7 g/dl (12.5-16.0); MEAN CORPUSCULAR HEMOGLOBIN 31 pg (27-31)
[2021-07-09 06:30] LABS: ALBUMIN 2.5 gm/dL (3.4-4.8); CALCIUM 8.5 mg/dL (8.4-10.2); CREATININE, serum 0.96 mg/dL (0.57-1.11); MAGNESIUM 1.7 mg/dL (1.6-2.6); PHOSPHOROUS 3.8 mg/dL (2.3-4.7)
[2021-07-09 08:11] VITALS: BP 120/60; PULSE 66; TEMP 98
[2021-07-09] MEDS ORDERED: COREG12.5 MG PO (08:27)
[2021-07-09 11:46] VITALS: BP 158/62; PULSE 60; TEMP 98.4
== END 2021-07-09 13:43 | DRG 813 ==
LOC: COL.ER 15:27 → ICU 18:23 → MEDICAL 07-04 09:44
PROVIDERS: Emergency Medicine; Internal Medicine; Student in an Organized Health Care Education/Training Program; ADMIT Internal Medicine
DX: D68.318 Other hemorrhagic disorder due to intrinsic circulating anticoagulants, antibodies, or inhibitors (principal); I69.351 Hemiplegia and hemiparesis following cerebral infarction affecting right dominant side; D62 Acute posthemorrhagic anemia; I95.9 Hypotension, unspecified; M79.7 Fibromyalgia; I10 Essential (primary) hypertension; E78.5 Hyperlipidemia, unspecified; K21.9 Gastro-esophageal reflux disease without esophagitis; F32.A Depression, unspecified; E11.9 Type 2 diabetes mellitus without complications; I27.20 Pulmonary hypertension, unspecified; I48.0 Paroxysmal atrial fibrillation; I08.1 Rheumatic disorders of both mitral and tricuspid valves; Z96.652 Presence of left artificial knee joint; Z20.822 Contact with and (suspected) exposure to COVID-19; Z90.49 Acquired absence of other specified parts of digestive tract; Z95.0 Presence of cardiac pacemaker; I69.320 Aphasia following cerebral infarction; Z79.01 Long term (current) use of anticoagulants; I69.391 Dysphagia following cerebral infarction; Z79.84 Long term (current) use of oral hypoglycemic drugs; Z79.02 Long term (current) use of antithrombotics/antiplatelets
CPT/HCPCS: 99222-AI; 99232-AI; 99233-AI; 99239; C9113; J1644; J3480; J7030; J7120; P9016; Q9967

== ENCOUNTER 2021-07-16 21:49 | Emergency (ER) | payer MEDICARE, MEDICAID ==
[~2021-07-16] VITALS: Ht 172.7 cm; Wt 72.7 kg
[2021-07-16 21:49] VITALS: TEMP 98.2
[~2021-07-16 21:49] MED LIST changes: +COREG 25MG25 MG/TAB PO; +COREG12.5 MG PO; +CYANOCOBAL1000 MCG/M IM; +ELIQUIS 2.5 PO; +ENSURE PLUS 24240 ML; +FLEXERIL5 MG PO; +GLUCOPHAGE500 MG/TAB PO; +IMODIUM 2MG CAPS2 MG PO; +KEPPRA250 MG PO; +LIPITOR 40MG TA40 MG PO; +MUCUS RELIEF200 MG PO; +NEURONTIN300 MG/CAP PO; +NORCO 325 MG-7.1 TAB PO; +PLAVIX 75MG TAB75 MG PO; +SENNA-LAX8.6 MG PO; +SYSTANE BALANCE10 M1 OP; +VOLTAREN GEL 1%1 TU TP; +ZOFRAN ODT4 MG PO; +ZOLOFT 50MG50 MG PO; +ZYLOPRIM 100MG100 MG PO; +[UNRECOGNIZED DRUG - OTHER] TOP
[2021-07-16 23:01] LABS: BASO # 0.1 K/mm3 (0.0-0.2); BASO % 0.6 % (0.0-2.0); EOS # 0.6 K/mm3 (0.0-0.7); EOS % 6.9 % (0.0-4.0); GRAN # 4.6 K/mm3 (1.4-6.5); GRAN % 57.9 % (42.2-75.2); HEMOGLOBIN 10.6 g/dl (12.5-16.0); LYMPH # 2.2 K/mm3 (1.2-3.4); LYMPH % 28.1 % (20.0-51.0); MEAN CELL VOLUME 95 fl (80.0-100.0); MEAN CORPUSCULAR HEMOGLOBIN 31 pg (27-31); MEAN CORPUSCULAR HGB CONC 32 g/dl (33.0-37.0); MEAN PLATELET VOLUME 13.8 fl (7.4-10.4); MONO # 0.5 K/mm3 (0.1-0.6); MONO % 6.1 % (1.7-9.3); PLATELET COUNT 159 K/mm3 (130-400); RED BLOOD COUNT 3.44 M/mm3 (4.10-5.30); REDCELL DISTRIBUTION WIDTH-CV 14.2 % (11.5-14.5)
[2021-07-16 23:06] LABS: HEMATOCRIT 32.8 % (37.0-47.0)
[2021-07-16 23:16] LABS: ALBUMIN 3.3 gm/dL (3.4-4.8); C-REACTIVE PROTEIN 1.36 mg/dL (0.00-0.50); CALCIUM 9.1 mg/dL (8.4-10.2); CREATININE, serum 1.02 mg/dL (0.57-1.11); POTASSIUM 3.5 mmol/L (3.5-4.5); TOTAL PROTEIN 6.5 gm/dL (6.2-8.1)
[2021-07-17 00:02] LABS: COLLECTION METHOD CATHETER
[2021-07-17 00:15] LABS: PH 6 (5-8); SQUAMOUS EPITHELIAL None Seen /hpf (0-10); URINE APPEARANCE Hazy (CLEAR/HAZY); URINE BACTERIA Moderate /hpf (NONE SEEN); URINE BILIRUBIN Negative (NEGATIVE); URINE BLOOD Negative (NEGATIVE); URINE COLOR Straw (YELLOW); URINE GLUCOSE Negative (NEGATIVE); URINE KETONE Negative (NEGATIVE); URINE LEUKOCYTE ESTERASE 2+ (NEGATIVE); URINE NITRATE Negative (NEGATIVE); URINE PROTEIN(semi-quant) Negative (NEGATIVE); URINE RBC 0-2 /hpf (0-2); URINE UROBILINOGEN Negative (NEGATIVE)
[2021-07-17] MEDS ORDERED: CEFTIN500 MG PO (00:20)
[2021-07-17 01:00] VITALS: BP 118/57; PULSE 74
== END 2021-07-17 01:15 | disposition home or self-care (01) ==
LOC: COL.ER 21:49
PROVIDERS: Emergency Medicine
DX: I10 Essential (primary) hypertension (principal); N39.0 Urinary tract infection, site not specified; Z95.0 Presence of cardiac pacemaker
CPT/HCPCS: C9113; J0360; J0696; J2405; J7030